=== PATIENT | male | born 1970 | race American Indian/Alaskan Native ===

== ENCOUNTER 2017-04-21 15:15 | Emergency (ER) | payer SELFPAY ==
[2017-04-21 15:45] VITALS: BP 120/81
--- NOTE | 2017-04-21 15:49 | Emergency Department Report ---
Entered by ROSS DILLON, acting as scribe for DAVIAN SHEPARD NP. Chief Complaint: Extremity Injury, Lower Stated Complaint: NUMBNESS IN LEG/CHEST PAINS/SOB Time Seen by Provider: 04/21/17 15:39 - HPI History of Present Illness: 46 y/o male, PMHx of A-fib, gout, c/o squeezing chest pain. Associated nausea, left lower leg pain but denies weight loss and changes in appetite. PT c/o Left leg pain and redness x 1 week - ROS Review of Systems: +chest pain +left lower leg pain, redness and swelling +nausea - Exam Vital Signs: Vital Signs 04/21/17 15:36 Temperature 98.6 F Pulse Rate 80 Respiratory 19 Rate Blood Pressure 120/81 O2 Sat by Pulse 98 Oximetry Physical Exam: The patient is a well-developed, well-nourished, in no apparent distress. Patient is alert and oriented x3. Extremity: erythema to LLE, + edema to ble MSE screening note: Focused history and physical exam performed. Due to findings the following was ordered: ekg, labs, xr ED Disposition for MSE Condition: Stable This documentation as recorded by the scribe,ROSS DILLON,accurately reflects the service I personally performed and the decisions made by ,DAVIAN SHEPARD, FUSING LINE INSPECTOR.
[2017-04-21 16:13] LABS: Basophils % (Auto) 1.2 % (0.0-1.8); Eosinophils % (Auto) 1.6 % (0.0-4.3); Hemoglobin 15.1 gm/dl (11.8-15.2); Mean Corpuscular HGB Conc 34 % (32-34); Mean Corpuscular Hemoglobin 31 pg (28-32); Mean Corpuscular Volume 93 fl (84-94); Platelet Count 289 K/mm3 (140-440); Red Blood Count 4.82 M/mm3 (3.65-5.03); Red Cell Distribution Width 15.7 % (13.2-15.2)
[2017-04-21 16:39] LABS: Alanine Aminotransferase 68 units/L (7-56); Albumin 4.5 g/dL (3.9-5); Albumin/Globulin Ratio 1.4 %; Alkaline Phosphatase 84 units/L (35-129); Anion Gap 23 mmol/L; BUN/Creatinine Ratio 11.42; Blood Urea Nitrogen 8 mg/dL (9-20); Calcium 9.6 mg/dL (8.4-10.2); Carbon Dioxide 25 mmol/L (22-30); Chloride 91.7 mmol/L (98-107); Glucose 109 mg/dL (75-100); Potassium 3.2 mmol/L (3.6-5.0); Sodium 136 mmol/L (137-145); Total Protein 7.8 g/dL (6.3-8.2)
--- NOTE | 2017-04-22 07:27 | XRay Report ---
CHEST 2 VIEWS INDICATION: Chest pain. COMPARISON: None similar. FINDINGS: PA and lateral chest radiographs demonstrate normal cardiomediastinal silhouette and clear lungs, given the inspiration. Right hemidiaphragm slightly elevated. Slight mid thoracic spine degenerative spurring. CONCLUSION: No definite acute chest process, as described. Thank you for the opportunity to participate in this patient's care.
== END 2017-04-21 20:00 | disposition left against medical advice (07) ==
LOC: ED 15:15
DX: M79.605 Pain in left leg (principal); R11.0 Nausea; R07.9 Chest pain, unspecified; I48.91 Unspecified atrial fibrillation; Z53.21 Procedure and treatment not carried out due to patient leaving prior to being seen by health care provider
CPT/HCPCS: 36415; 71020; 80053; 82550; 83880; 84484; 85025; 93005; 93010

== ENCOUNTER 2017-06-08 04:47 | Emergency (ER) | payer SELFPAY ==
--- NOTE | 2017-06-08 06:34 | Cat Scan Report ---
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 No intravenous contrast was administered. PRIORS: None. FINDINGS: There is no evidence of intracranial hemorrhage. There is no edema, mass effect or midline shift. There are no abnormal extra-axial fluid collections. The ventricles are appropriate for brain volume. There is no skull fracture seen. The visualized aspects of the sinuses are clear. IMPRESSION: There is no acute intracranial abnormality identified.
[2017-06-08 07:07] LABS: Basophils % (Auto) 0.5 % (0.0-1.8); Eosinophils % (Auto) 2.2 % (0.0-4.3); Hematocrit 44.8 % (35.5-45.6); Hemoglobin 15.2 gm/dl (11.8-15.2); Mean Corpuscular HGB Conc 34 % (32-34); Mean Corpuscular Hemoglobin 32 pg (28-32); Mean Corpuscular Volume 93 fl (84-94); Platelet Count 304 K/mm3 (140-440); Red Blood Count 4.81 M/mm3 (3.65-5.03); Red Cell Distribution Width 14.4 % (13.2-15.2); White Blood Count 6.6 K/mm3 (4.5-11.0)
[2017-06-08 07:12] LABS: Anion Gap 25 mmol/L; BUN/Creatinine Ratio 11.25; Blood Urea Nitrogen 9 mg/dL (9-20); Calcium 8.8 mg/dL (8.4-10.2); Carbon Dioxide 20 mmol/L (22-30); Chloride 99.7 mmol/L (98-107); Glucose 116 mg/dL (75-100); Potassium 3.2 mmol/L (3.6-5.0); Sodium 141 mmol/L (137-145)
[2017-06-08 07:15] LABS: INR 0.98 (0.87-1.13)
[2017-06-08 07:16] LABS: Partial Thromboplastin Time 27.6 Sec. (24.2-36.6)
[2017-06-08] MEDS ORDERED: ZOFRAN IV ONE (08:06)
[2017-06-08] MEDS ORDERED: DILAUDID IV ONE (08:06)
[2017-06-08] MEDS ORDERED: K-DUR PO ONE (08:48)
--- NOTE | 2017-06-08 08:49 | Emergency Department Report ---
ED Chest Pain HPI - General Chief Complaint: Chest Pain Stated Complaint: CHEST PAIN Time Seen by Provider: 06/08/17 08:06 Source: patient Mode of arrival: Ambulatory Limitations: No Limitations - History of Present Illness MD Complaint: chest pain -: Gradual Onset: during rest Pain Location: left chest, right chest Pain Radiation: back Severity: mild Severity scale (0 -10): 4 Quality: tightness Consistency: constant Improves With: nothing Worsens With: nothing Context: recent illness re: nausea Other Symptoms: cough Treatments Prior to Arrival: none Aspirin use within the Past 7 Days: (0) No - Related Data On Oral Contraceptives: No Previous Rx's Medication Instructions Recorded Last Taken Type methOCARBAMOL [Robaxin TAB] 500 mg PO Q6H PRN #20 tablet 06/08/17 Unknown Rx Allergies Allergy/AdvReac Type Severity Reaction Status Date / Time Penicillins Allergy Unknown Verified 04/21/17 15:46 Heart Score - HEART Score History: Slightly suspicious EKG: Non-specific Age: 45-65 Risk factors: 1-2 risk factors Troponin: < normal limit HEART Score: 3 - Critical Actions Critical Actions: 0-3 pts:0.9-1.7%risk of adverse cardiac event.Candidate for discharge ED Review of Systems ROS: Stated complaint: CHEST PAIN Other details as noted in HPI Comment: All other systems reviewed and negative Constitutional: weakness Cardiovascular: chest pain ED Past Medical Hx - Past Medical History Previous Medical History?: Yes Hx Hypertension: Yes Additional medical history: ATRIAL FIB. HIGH CHOLESTEROL. GOUT. OBESITY - Surgical History Hx Cholecystectomy: Yes Additional Surgical History: LEFT LOWER LEG SURGERIES. RIGHT LEG SURGERY - Family History Family history: hypertension - Social History Smoking Status: Current Every Day Smoker - Medications Home Medications: Home Medications Medication Instructions Recorded Confirmed Last Taken Type methOCARBAMOL [Robaxin TAB] 500 mg PO Q6H PRN #20 tablet 06/08/17 Unknown Rx ED Physical Exam - General Limitations: No Limitations General appearance: alert - Head Head exam: Present: atraumatic - Eye Eye exam: Present: normal appearance - ENT ENT exam: Present: normal exam - Neck Neck exam: Present: normal inspection - Respiratory Respiratory exam: Present: normal lung sounds bilaterally - Cardiovascular Cardiovascular Exam: Present: regular rate, normal rhythm - GI/Abdominal GI/Abdominal exam: Present: soft - Back Exam Back exam: Present: normal inspection - Neurological Exam Neurological exam: Present: alert, oriented X3 - Skin Skin exam: Present: warm ED Course Vital Signs 06/08/17 06/08/17 06/08/17 05:47 06:44 06:46 Temperature 98.0 F Pulse Rate 103 H 81 90 Respiratory 18 12 15 Rate Blood Pressure 139/101 Blood Pressure [Left] O2 Sat by Pulse 96 100 99 Oximetry 06/08/17 06/08/17 06/08/17 06:48 06:50 06:52 Temperature Pulse Rate 84 89 86 Respiratory 17 17 16 Rate Blood Pressure 126/87 126/87 126/87 Blood Pressure [Left] O2 Sat by Pulse 99 94 99 Oximetry 06/08/17 06/08/17 06/08/17 06:54 07:25 07:26 Temperature 97.9 F Pulse Rate 88 85 Respiratory 24 17 Rate Blood Pressure 126/87 Blood Pressure 126/90 [Left] O2 Sat by Pulse 94 98 100 Oximetry 06/08/17 06/08/17 06/08/17 07:58 08:00 08:02 Temperature Pulse Rate 88 75 82 Respiratory 17 20 23 Rate Blood Pressure 122/91 139/77 139/77 Blood Pressure [Left] O2 Sat by Pulse 98 96 94 Oximetry 06/08/17 06/08/17 06/08/17 08:04 08:06 08:08 Temperature Pulse Rate 82 84 78 Respiratory 21 21 19 Rate Blood Pressure 139/77 139/77 139/77 Blood Pressure [Left] O2 Sat by Pulse 95 95 97 Oximetry 06/08/17 06/08/17 06/08/17 08:10 08:12 08:14 Temperature Pulse Rate 81 81 90 Respiratory 18 19 16 Rate Blood Pressure 139/77 139/77 139/77 Blood Pressure [Left] O2 Sat by Pulse 94 95 98 Oximetry 06/08/17 06/08/17 06/08/17 08:15 08:16 08:18 Temperature Pulse Rate 86 82 88 Respiratory 20 20 20 Rate Blood Pressure 131/90 131/90 131/90 Blood Pressure [Left] O2 Sat by Pulse 97 92 89 Oximetry 06/08/17 06/08/17 06/08/17 08:20 08:22 08:24 Temperature Pulse Rate 78 80 80 Respiratory 17 18 17 Rate Blood Pressure 131/90 131/90 131/90 Blood Pressure [Left] O2 Sat by Pulse 96 94 91 Oximetry 06/08/17 06/08/17 06/08/17 08:26 08:28 08:30 Temperature Pulse Rate 76 86 78 Respiratory 17 18 17 Rate Blood Pressure 131/90 131/90 121/85 Blood Pressure [Left] O2 Sat by Pulse 92 89 92 Oximetry 06/08/17 06/08/17 06/08/17 08:32 08:34 08:36 Temperature Pulse Rate 80 76 75 Respiratory 16 16 17 Rate Blood Pressure 121/85 121/85 121/85 Blood Pressure [Left] O2 Sat by Pulse 89 92 91 Oximetry 06/08/17 06/08/17 06/08/17 08:38 08:40 08:42 Temperature Pulse Rate 76 80 79 Respiratory 16 15 17 Rate Blood Pressure 121/85 121/85 121/85 Blood Pressure [Left] O2 Sat by Pulse 92 92 89 Oximetry 06/08/17 06/08/17 06/08/17 08:44 08:46 08:48 Temperature Pulse Rate 86 86 76 Respiratory 20 18 15 Rate Blood Pressure 121/85 116/62 116/62 Blood Pressure [Left] O2 Sat by Pulse 93 94 94 Oximetry 06/08/17 06/08/17 06/08/17 08:50 08:52 08:54 Temperature Pulse Rate 81 84 83 Respiratory 15 17 18 Rate Blood Pressure 116/62 116/62 116/62 Blood Pressure [Left] O2 Sat by Pulse 97 98 97 Oximetry 06/08/17 06/08/17 06/08/17 08:56 08:58 09:00 Temperature Pulse Rate 87 78 86 Respiratory 15 13 16 Rate Blood Pressure 116/62 116/62 124/89 Blood Pressure [Left] O2 Sat by Pulse 98 99 98 Oximetry 06/08/17 06/08/17 06/08/17 09:02 09:04 09:06 Temperature Pulse Rate 76 75 78 Respiratory 15 19 17 Rate Blood Pressure 124/89 124/89 124/89 Blood Pressure [Left] O2 Sat by Pulse 99 94 96 Oximetry 06/08/17 06/08/17 06/08/17 09:08 09:10 09:12 Temperature Pulse Rate 78 80 78 Respiratory 17 18 17 Rate Blood Pressure 124/89 124/89 124/89 Blood Pressure [Left] O2 Sat by Pulse 97 93 95 Oximetry 06/08/17 06/08/17 06/08/17 09:14 09:15 09:16 Temperature Pulse Rate 80 74 81 Respiratory 18 16 19 Rate Blood Pressure 124/89 117/72 117/72 Blood Pressure [Left] O2 Sat by Pulse 94 100 95 Oximetry 06/08/17 06/08/17 06/08/17 09:18 09:20 09:22 Temperature Pulse Rate 76 75 74 Respiratory 17 17 17 Rate Blood Pressure 117/72 117/72 117/72 Blood Pressure [Left] O2 Sat by Pulse 95 95 96 Oximetry 06/08/17 06/08/17 06/08/17 09:24 09:26 09:28 Temperature Pulse Rate 88 84 81 Respiratory 17 20 16 Rate Blood Pressure 117/72 117/72 117/72 Blood Pressure [Left] O2 Sat by Pulse 95 98 99 Oximetry 06/08/17 06/08/17 09:30 09:31 Temperature Pulse Rate 80 80 Respiratory 20 14 Rate Blood Pressure 117/72 117/72 Blood Pressure [Left] O2 Sat by Pulse 99 100 Oximetry ED Medical Decision Making - Lab Data Result diagrams: 06/08/17 05:58 06/08/17 05:58 Critical care attestation.: If time is entered above; I have spent that time in minutes in the direct care of this critically ill patient, excluding procedure time. ED Disposition Clinical Impression: Chest pain Disposition: DC-01 TO HOME OR SELFCARE Is pt being admited?: No Does the pt Need Aspirin: No Condition: Stable Instructions: Chest Pain (ED) Prescriptions: methOCARBAMOL [Robaxin TAB] 500 mg PO Q6H PRN #20 tablet PRN Reason: Pain Referrals: GLORIA COLBY MD [Other] - 3-5 Days
[2017-06-08 09:46] VITALS: BP 117/72
== END 2017-06-08 09:50 | disposition home or self-care (01) ==
LOC: ED 04:47
DX: R07.9 Chest pain, unspecified (principal); I10 Essential (primary) hypertension; E78.00 Pure hypercholesterolemia, unspecified; M10.9 Gout, unspecified; E66.9 Obesity, unspecified; F17.200 Nicotine dependence, unspecified, uncomplicated; Z88.0 Allergy status to penicillin
CPT/HCPCS: 36415; 70450; 80048; 84484; 85025; 85610; 85730; 93005; 93010; 96374; 96375; 99285; J1170; J2405

== ENCOUNTER 2017-09-25 17:12 | Inpatient (IN) | payer OTHER ==
--- NOTE | 2017-09-25 18:08 | Emergency Department Report ---
ED Neuro Deficit HPI - General Chief Complaint: Neuro Symptoms/Deficit Stated Complaint: NEURO SYMPTOMS Time Seen by Provider: 09/25/17 18:01 Source: patient Mode of arrival: Wheelchair Limitations: Altered Mental Status, Other (the patient has alcohol intoxication on board) - History of Present Illness Initial Comments: This is a 47-year-old male. The patient is previously unknown to this provider. The patient presents to the ER today with complaint of left-sided weakness, headache and chest pain. The left-sided weakness is constant. The patient does not know what time it started. The patient says his chest pain is central. Does not have exacerbating or relieving factors. He cannot describe the quality of nature of his symptoms. He does not know if he fell or hit his head, although he does not think so. As per verbal report from his nephew, Mr. Kamar Tello; [phone], he came home and found the patient and home, with complaint of left-sided zackary-Lelia's. He indicates "my uncle drinks all day all the time." The patient cannot tell me his last known well time. The patient's nephew, Kamar, cannot tell me the patient's last known well time. The patient also complains of headache. He indicates the headache is "all over." He cannot describe the nature of the headache, nor can he describe exacerbating or relieving factors, secondary to alcohol intoxication. -: unknown Location: left arm, left leg Presenting Symptoms: Present: Weak/Paralyzed One Side Place: home Severity: moderate Quality: weak, other (per hpi) Improves With: other (per hpi) Worsens With: other (per hpi) Context: other (unknown) Associated Symptoms: confusion, chest pain, headaches - Related Data Home Medications: Previous Rx's Medication Instructions Recorded Last Taken Type methOCARBAMOL [Robaxin TAB] 500 mg PO Q6H PRN #20 tablet 06/08/17 Unknown Rx Allergies/Adverse Reactions: Allergies Allergy/AdvReac Type Severity Reaction Status Date / Time Penicillins Allergy Unknown Verified 04/21/17 15:46 ED Review of Systems ROS: Stated complaint: NEURO SYMPTOMS Other details as noted in HPI Comment: Unobtainable due to pts medical conditions Cardiovascular: chest pain Neurological: weakness ED Past Medical Hx - Past Medical History Hx Hypertension: Yes Additional medical history: ATRIAL FIB. HIGH CHOLESTEROL. GOUT. OBESITY - Surgical History Hx Cholecystectomy: Yes Additional Surgical History: LEFT LOWER LEG SURGERIES. RIGHT LEG SURGERY - Social History Smoking Status: Current Every Day Smoker Substance Use Type: Alcohol - Medications Home Medications: Home Medications Medication Instructions Recorded Confirmed Last Taken Type methOCARBAMOL [Robaxin TAB] 500 mg PO Q6H PRN #20 tablet 06/08/17 Unknown Rx ED Neuro Physical Exam - General Limitations: No Limitations General appearance: alert, in no apparent distress Suspected Stroke: Yes - Head Head exam: Present: atraumatic, normocephalic - Eye Eye exam: Present: normal appearance, EOMI. Absent: nystagmus - ENT ENT exam: Present: normal exam, normal orophraynx, mucous membranes moist, normal external ear exam - Neck Neck exam: Present: normal inspection, full ROM - Respiratory Respiratory exam: Present: normal lung sounds bilaterally. Absent: respiratory distress - Cardiovascular Cardiovascular Exam: Present: normal rhythm, tachycardia, normal heart sounds. Absent: bradycardia, systolic murmur, diastolic murmur, rubs, gallop - GI/Abdominal GI/Abdominal exam: Present: soft, normal bowel sounds. Absent: distended, tenderness, guarding, rebound, rigid, pulsatile mass - Rectal Rectal exam: Present: deferred - Extremities Exam Extremities exam: Present: normal inspection, other (5-5 strength right upper, right lower extremity. Patient has 0 out of 5 strength left upper, left lower extremity. Patient endorses no sensation left upper, left lower extremity). Absent: full ROM - Back Exam Back exam: Present: normal inspection. Absent: paraspinal tenderness, vertebral tenderness - Neurological Exam Neurological exam: Present: alert, motor sensory deficit - NIHSS Assessment Interval: Baseline 1a. Level of Consciousness: alert 1b. LOC Questions: answers 1 question correctly 1c. LOC Commands: performs tasks correctly 2. Best Gaze: normal 3. Visual: no visual loss 4. Facial Palsy: normal symmetrical movement 5b. Motor Arm Right: no drift 5a. Motor Arm Left: no movement 6a. Motor Leg Left: no movement 6b. Motor Leg Right: no drift 7. Limb Ataxia: absent 8. Sensory: severe/total sensory loss 9. Best Language: no aphasia 10. Dysarthria: normal 11. Extinction/Inattention: visual/tactile inattention Total Score: 12 Stroke Severity: Moderate Stroke - Psychiatric Psychiatric exam: Present: normal affect, normal mood. Absent: homicidal ideation, suicidal ideation - Skin Skin exam: Present: warm, dry, intact, normal color. Absent: rash ED Course Vital Signs 09/25/17 09/25/17 09/25/17 17:31 18:16 19:20 Temperature 98.7 F Pulse Rate 111 H 101 H Respiratory 18 18 21 Rate Blood Pressure 117/88 O2 Sat by Pulse 93 91 96 Oximetry 09/25/17 09/25/17 09/25/17 19:25 19:27 19:29 Temperature Pulse Rate 99 H 99 H 98 H Respiratory 20 22 19 Rate Blood Pressure 117/81 117/81 117/81 O2 Sat by Pulse 96 98 96 Oximetry 09/25/17 09/25/17 09/25/17 19:31 19:32 19:33 Temperature Pulse Rate Respiratory Rate Blood Pressure 117/81 117/81 117/81 O2 Sat by Pulse 98 98 97 Oximetry 09/25/17 09/25/17 09/25/17 20:05 20:07 20:09 Temperature Pulse Rate 94 H 102 H 100 H Respiratory 18 21 19 Rate Blood Pressure 131/87 131/87 131/87 O2 Sat by Pulse 89 Oximetry 09/25/17 09/25/17 09/25/17 20:11 20:12 20:13 Temperature Pulse Rate 102 H 102 H 101 H Respiratory 19 17 18 Rate Blood Pressure 131/87 131/87 O2 Sat by Pulse 88 87 88 Oximetry 09/25/17 09/25/17 09/25/17 20:15 20:17 20:18 Temperature Pulse Rate 104 H 108 H 101 H Respiratory 19 19 19 Rate Blood Pressure 131/87 131/87 131/87 O2 Sat by Pulse 81 L 89 95 Oximetry 09/25/17 09/25/17 09/25/17 20:21 20:22 20:24 Temperature Pulse Rate 106 H 99 H 96 H Respiratory 16 18 19 Rate Blood Pressure 131/87 131/87 131/87 O2 Sat by Pulse 94 97 95 Oximetry 09/25/17 09/25/17 09/25/17 20:26 20:28 20:30 Temperature Pulse Rate 98 H 102 H 99 H Respiratory 18 18 17 Rate Blood Pressure 131/87 131/87 114/75 O2 Sat by Pulse 98 98 97 Oximetry 09/25/17 09/25/17 09/25/17 20:32 20:34 20:36 Temperature Pulse Rate 100 H 100 H 106 H Respiratory 18 18 17 Rate Blood Pressure 114/75 114/75 114/75 O2 Sat by Pulse 97 97 96 Oximetry 09/25/17 09/25/17 09/25/17 20:38 20:40 20:42 Temperature Pulse Rate 102 H 101 H 102 H Respiratory 17 19 18 Rate Blood Pressure 114/75 114/75 114/75 O2 Sat by Pulse 97 99 96 Oximetry 09/25/17 09/25/17 09/25/17 20:44 20:46 20:48 Temperature Pulse Rate 106 H 106 H 106 H Respiratory 17 19 13 Rate Blood Pressure 114/75 114/75 114/75 O2 Sat by Pulse 95 94 97 Oximetry 09/25/17 09/25/17 09/25/17 20:49 20:52 20:54 Temperature Pulse Rate 107 H 100 H 101 H Respiratory 14 19 17 Rate Blood Pressure 114/75 118/88 118/88 O2 Sat by Pulse 100 93 91 Oximetry 09/25/17 09/25/17 09/25/17 20:56 20:58 21:00 Temperature Pulse Rate 100 H 101 H 99 H Respiratory 19 19 16 Rate Blood Pressure 118/88 114/75 121/83 O2 Sat by Pulse 90 82 L 89 Oximetry 09/25/17 09/25/17 09/25/17 21:02 21:04 21:06 Temperature Pulse Rate 101 H 98 H 100 H Respiratory 17 16 18 Rate Blood Pressure 121/83 121/83 121/83 O2 Sat by Pulse 89 92 84 Oximetry 09/25/17 09/25/17 09/25/17 21:08 21:10 21:12 Temperature Pulse Rate 101 H 103 H 108 H Respiratory 17 19 19 Rate Blood Pressure 121/83 121/83 121/83 O2 Sat by Pulse 90 85 84 Oximetry 09/25/17 09/25/17 09/25/17 21:14 21:16 21:18 Temperature Pulse Rate 105 H 106 H 106 H Respiratory 19 18 18 Rate Blood Pressure 121/83 121/83 121/83 O2 Sat by Pulse 86 82 L 86 Oximetry 09/25/17 09/25/17 09/25/17 21:20 21:22 21:24 Temperature Pulse Rate 109 H 105 H 105 H Respiratory 18 19 17 Rate Blood Pressure 128/69 128/69 128/69 O2 Sat by Pulse 84 86 81 L Oximetry 09/25/17 09/25/17 09/25/17 21:26 21:28 21:30 Temperature Pulse Rate 101 H 103 H 104 H Respiratory 22 16 15 Rate Blood Pressure 128/69 128/69 128/69 O2 Sat by Pulse 93 94 96 Oximetry 09/25/17 09/25/17 09/25/17 21:32 21:34 21:36 Temperature Pulse Rate 101 H 105 H 103 H Respiratory 16 15 13 Rate Blood Pressure 128/69 128/69 128/69 O2 Sat by Pulse 97 96 94 Oximetry 09/25/17 09/25/17 09/25/17 21:38 21:40 21:42 Temperature Pulse Rate 102 H 103 H 103 H Respiratory 20 24 23 Rate Blood Pressure 128/69 121/67 121/67 O2 Sat by Pulse 93 95 97 Oximetry 09/25/17 09/25/17 09/25/17 21:44 21:46 21:48 Temperature Pulse Rate 103 H 103 H 104 H Respiratory 23 16 17 Rate Blood Pressure 121/67 121/67 121/67 O2 Sat by Pulse 93 97 94 Oximetry 09/25/17 09/25/17 09/25/17 21:50 21:52 21:54 Temperature Pulse Rate 103 H 105 H 106 H Respiratory 17 17 17 Rate Blood Pressure 121/67 121/67 121/67 O2 Sat by Pulse 95 95 95 Oximetry 09/25/17 09/25/17 09/25/17 21:56 21:58 22:00 Temperature Pulse Rate 104 H 106 H 100 H Respiratory 16 18 15 Rate Blood Pressure 121/67 121/67 115/69 O2 Sat by Pulse 95 95 96 Oximetry 09/25/17 09/25/17 09/25/17 22:02 22:04 22:06 Temperature Pulse Rate 102 H 102 H 103 H Respiratory 16 18 18 Rate Blood Pressure 115/69 115/69 115/69 O2 Sat by Pulse 95 94 95 Oximetry 09/25/17 09/25/17 09/25/17 22:08 22:10 22:12 Temperature Pulse Rate 102 H 104 H 103 H Respiratory 19 18 18 Rate Blood Pressure 115/69 115/69 115/69 O2 Sat by Pulse 94 94 94 Oximetry 09/25/17 09/25/17 09/25/17 22:14 22:16 22:18 Temperature Pulse Rate 103 H 102 H 104 H Respiratory 18 18 18 Rate Blood Pressure 115/69 115/69 115/69 O2 Sat by Pulse 92 93 92 Oximetry 09/25/17 09/25/17 09/25/17 22:20 22:21 22:22 Temperature Pulse Rate 102 H 107 H 103 H Respiratory 18 19 19 Rate Blood Pressure 115/69 118/71 118/71 O2 Sat by Pulse 94 93 94 Oximetry 09/25/17 09/25/17 09/25/17 22:24 22:26 22:28 Temperature Pulse Rate 106 H 102 H 103 H Respiratory 18 18 19 Rate Blood Pressure 118/71 118/71 118/71 O2 Sat by Pulse 92 94 94 Oximetry 09/25/17 09/25/17 09/25/17 22:30 22:32 22:40 Temperature Pulse Rate 99 H 101 H 103 H Respiratory 15 16 18 Rate Blood Pressure 115/69 115/69 114/72 O2 Sat by Pulse 96 95 94 Oximetry 09/25/17 09/25/17 09/25/17 22:42 22:44 22:46 Temperature Pulse Rate 102 H 101 H 96 H Respiratory 17 15 17 Rate Blood Pressure 114/72 114/72 114/72 O2 Sat by Pulse 97 95 95 Oximetry 09/25/17 09/25/17 09/25/17 22:48 22:50 22:52 Temperature Pulse Rate 99 H 98 H 98 H Respiratory 16 16 15 Rate Blood Pressure 114/72 114/72 114/72 O2 Sat by Pulse 95 95 97 Oximetry 09/25/17 09/25/17 09/25/17 22:54 22:56 22:58 Temperature Pulse Rate 99 H 102 H 107 H Respiratory 17 18 22 Rate Blood Pressure 114/72 114/72 114/72 O2 Sat by Pulse 95 95 93 Oximetry 09/25/17 09/25/17 09/25/17 23:00 23:02 23:04 Temperature Pulse Rate 99 H 99 H 101 H Respiratory 16 16 17 Rate Blood Pressure 109/70 109/70 109/70 O2 Sat by Pulse 96 96 95 Oximetry 09/25/17 09/25/17 09/25/17 23:06 23:08 23:10 Temperature Pulse Rate 100 H 106 H 97 H Respiratory 16 18 17 Rate Blood Pressure 109/70 109/70 109/70 O2 Sat by Pulse 96 95 96 Oximetry 09/25/17 09/25/17 09/25/17 23:12 23:14 23:16 Temperature Pulse Rate 98 H 101 H 100 H Respiratory 16 16 18 Rate Blood Pressure 109/70 109/70 109/70 O2 Sat by Pulse 96 96 96 Oximetry 09/25/17 09/25/17 09/25/17 23:18 23:20 23:22 Temperature Pulse Rate 106 H 100 H 100 H Respiratory 20 18 14 Rate Blood Pressure 109/70 117/76 117/76 O2 Sat by Pulse 95 96 97 Oximetry 09/25/17 09/25/17 09/25/17 23:24 23:26 23:28 Temperature Pulse Rate 104 H 106 H 102 H Respiratory 16 16 17 Rate Blood Pressure 117/76 117/76 117/76 O2 Sat by Pulse 94 92 97 Oximetry 09/25/17 09/25/17 09/25/17 23:30 23:32 23:34 Temperature Pulse Rate 102 H 99 H 100 H Respiratory 15 15 17 Rate Blood Pressure 117/76 117/76 117/76 O2 Sat by Pulse 97 97 95 Oximetry 09/25/17 09/25/17 09/25/17 23:36 23:38 23:40 Temperature Pulse Rate 100 H 102 H 96 H Respiratory 17 16 16 Rate Blood Pressure 117/76 117/76 107/71 O2 Sat by Pulse 95 95 97 Oximetry 09/25/17 09/25/17 09/25/17 23:42 23:44 23:46 Temperature Pulse Rate 97 H 101 H 101 H Respiratory 16 17 18 Rate Blood Pressure 107/71 107/71 107/71 O2 Sat by Pulse 97 96 95 Oximetry 09/25/17 09/25/17 09/25/17 23:48 23:50 23:52 Temperature Pulse Rate 98 H 97 H 98 H Respiratory 17 16 16 Rate Blood Pressure 107/71 107/71 107/71 O2 Sat by Pulse 97 96 96 Oximetry 09/25/17 09/25/17 09/25/17 23:54 23:56 23:58 Temperature Pulse Rate 98 H 94 H 96 H Respiratory 17 16 16 Rate Blood Pressure 107/71 107/71 107/71 O2 Sat by Pulse 96 96 96 Oximetry 09/26/17 09/26/17 09/26/17 00:00 00:01 00:02 Temperature Pulse Rate 94 H 98 H 96 H Respiratory 14 14 17 Rate Blood Pressure 112/78 112/78 112/78 O2 Sat by Pulse 97 96 95 Oximetry 09/26/17 09/26/17 09/26/17 00:04 00:06 00:08 Temperature Pulse Rate 97 H 96 H 95 H Respiratory 17 18 15 Rate Blood Pressure 112/78 112/78 112/78 O2 Sat by Pulse 95 96 97 Oximetry 09/26/17 09/26/17 09/26/17 00:10 00:12 00:14 Temperature Pulse Rate 94 H 96 H 98 H Respiratory 16 17 17 Rate Blood Pressure 112/78 112/78 112/78 O2 Sat by Pulse 96 96 97 Oximetry 09/26/17 00:16 Temperature Pulse Rate 92 H Respiratory 13 Rate Blood Pressure 112/78 O2 Sat by Pulse 97 Oximetry - Reevaluation(s) Reevaluation #1: 09/25/17 18:16 Differential diagnosis: Stroke, radiculopathy, alcohol intoxication, acute coronary syndrome, aortic dissection Assessment and plan: 47-year-old male with a complaint of chest pain, headache and left-sided hemiparesis. We do not have an exact timeline or onset of symptoms. The patient is drunk, and cannot tell me exactly when his symptoms started. His nephew, Mr. Kamar Tello, also cannot say when his symptoms started. Mr. Tello gave verbal consent over a telephone conversation "to do any test that is necessary." CT scan of the brain is pending. CT scan of the neck and head are also pending; doubt aortic dissection, patient is not severely hypertensive and has equal pulses in the bilateral upper and lower extremities. In addition, a CT angiogram of the brain and neck should involve the aortic arch, which can be visualized in case the patient is having a dissection. We will also discuss with stroke neurology consulting group analyst. Reevaluation #2: 09/25/17 18:42 Case is discussed with consulting stroke neurologist, Dr. Jaxson Kay. Given that the patient cannot give an exact onset of symptoms, his family cannot provide any exact onset of symptoms, patient does not know if he's had any surgeries recently, family and patient cannot provide a full list of medications and/or recent surgeries, the patient is not a thrombolysis candidate. He does agree with plan for CT angiogram of the head and neck. Reevaluation #3: 09/25/17 20:18 CT scan/angiogram is still pending. Laboratory studies demonstrated an elevated blood alcohol level. Reevaluation #4: 09/25/17 22:04 Patient in no distress. Multiple calls made to [facility] radiology group, DODIE , we have requested expedited reads on CT angiograms. Thus far, no re-has been rendered. Currently waiting interpretation. Reevaluation #5: 09/25/17 23:52 Still no interpretation on the CT scan. There is no in-house radiologist. There is no on-call radiologist. CT scans have been sensitive to [facility]. We'll discuss - Consultations Consultation #1: 09/26/17 00:[address] scan images were transmitted to [facility], and reviewed by the consulting stroke neurologist, Dr. Ghanshyam Llanes. He has personally reviewed the patient's images, and indicates that based on the patient's images, patient not a candidate for endovascular intervention or therapy. Case is therefore presented to the Hospital physician, Dr. Mendoza, who accepts the patient to the medical service. Consultation #2: 09/26/17 00:58 CT angiogram of the neck negative for dissection and large vessel occlusion. - Lab Data Result diagrams: 09/25/17 17:47 09/25/17 17:47 Lab Results 09/25/17 09/25/17 09/25/17 Range/Units 17:47 17:47 17:47 WBC 3.7 L (4.5-11.0) K/mm3 RBC 5.45 H (3.65-5.03) M/mm3 Hgb 17.0 H (11.8-15.2) gm/dl Hct 51.1 H (35.5-45.6) % MCV 94 (84-94) fl MCH 31 (28-32) pg MCHC 33 (32-34) % RDW 15.3 H (13.2-15.2) % Plt Count 258 (140-440) K/mm3 Lymph % (Auto) 44.6 H (13.4-35.0) % [place] % (Auto) 11.0 H (0.0-7.3) % Eos % (Auto) 2.7 (0.0-4.3) % Baso % (Auto) 1.0 (0.0-1.8) % Lymph # 1.7 (1.2-5.4) K/mm3 [place] # 0.4 (0.0-0.8) K/mm3 Eos # 0.1 (0.0-0.4) K/mm3 Baso # 0.0 (0.0-0.1) K/mm3 Seg Neutrophils % 40.7 (40.0-70.0) % Seg Neutrophils # 1.5 L (1.8-7.7) K/mm3 PT 13.1 (12.2-14.9) Sec. INR 0.94 (0.87-1.13) APTT 30.4 (24.2-36.6) Sec. Thrombin Time (15.1-19.6) Sec. Sodium 142 (137-145) mmol/L Potassium 3.9 (3.6-5.0) mmol/L Chloride 97.5 L (98-107) mmol/L Carbon Dioxide 25 (22-30) mmol/L Anion Gap 23 mmol/L BUN 10 (9-20) mg/dL Creatinine 0.8 (0.8-1.5) mg/dL Estimated GFR > 60 ml/min BUN/Creatinine Ratio 13 % Glucose 118 H (75-100) mg/dL POC Glucose (70-105) Calcium 9.4 (8.4-10.2) mg/dL Troponin T < 0.010 (0.00-0.029) ng/mL Urine Opiates Screen Urine Methadone Screen Ur Barbiturates Screen Ur Phencyclidine Scrn Ur Amphetamines Screen U Benzodiazepines Scrn Urine Cocaine Screen U Marijuana (THC) Screen Drugs of Abuse Note Plasma/Serum Alcohol (0-0.07) gm% 09/25/17 09/25/17 09/25/17 Range/Units 17:47 17:47 17:47 WBC (4.5-11.0) K/mm3 RBC (3.65-5.03) M/mm3 Hgb (11.8-15.2) gm/dl Hct (35.5-45.6) % MCV (84-94) fl MCH (28-32) pg MCHC (32-34) % RDW (13.2-15.2) % Plt Count (140-440) K/mm3 Lymph % (Auto) (13.4-35.0) % [place] % (Auto) (0.0-7.3) % Eos % (Auto) (0.0-4.3) % Baso % (Auto) (0.0-1.8) % Lymph # (1.2-5.4) K/mm3 [place] # (0.0-0.8) K/mm3 Eos # (0.0-0.4) K/mm3 Baso # (0.0-0.1) K/mm3 Seg Neutrophils % (40.0-70.0) % Seg Neutrophils # (1.8-7.7) K/mm3 PT (12.2-14.9) Sec. INR (0.87-1.13) APTT (24.2-36.6) Sec. Thrombin Time 28.1 H (15.1-19.6) Sec. Sodium (137-145) mmol/L Potassium (3.6-5.0) mmol/L Chloride (98-107) mmol/L Carbon Dioxide (22-30) mmol/L Anion Gap mmol/L BUN (9-20) mg/dL Creatinine (0.8-1.5) mg/dL Estimated GFR ml/min BUN/Creatinine Ratio % Glucose (75-100) mg/dL POC Glucose 132 H (70-105) Calcium (8.4-10.2) mg/dL Troponin T (0.00-0.029) ng/mL Urine Opiates Screen Urine Methadone Screen Ur Barbiturates Screen Ur Phencyclidine Scrn Ur Amphetamines Screen U Benzodiazepines Scrn Urine Cocaine Screen U Marijuana (THC) Screen Drugs of Abuse Note Plasma/Serum Alcohol 0.24 H (0-0.07) gm% 09/25/ Range/Units 19:00 WBC (4.5-11.0) K/mm3 RBC (3.65-5.03) M/mm3 Hgb (11.8-15.2) gm/dl Hct (35.5-45.6) % MCV (84-94) fl MCH (28-32) pg MCHC (32-34) % RDW (13.2-15.2) % Plt Count (140-440) K/mm3 Lymph % (Auto) (13.4-35.0) % [place] % (Auto) (0.0-7.3) % Eos % (Auto) (0.0-4.3) % Baso % (Auto) (0.0-1.8) % Lymph # (1.2-5.4) K/mm3 [place] # (0.0-0.8) K/mm3 Eos # (0.0-0.4) K/mm3 Baso # (0.0-0.1) K/mm3 Seg Neutrophils % (40.0-70.0) % Seg Neutrophils # (1.8-7.7) K/mm3 PT (12.2-14.9) Sec. INR (0.87-1.13) APTT (24.2-36.6) Sec. Thrombin Time (15.1-19.6) Sec. Sodium (137-145) mmol/L Potassium (3.6-5.0) mmol/L Chloride (98-107) mmol/L Carbon Dioxide (22-30) mmol/L Anion Gap mmol/L BUN (9-20) mg/dL Creatinine (0.8-1.5) mg/dL Estimated GFR ml/min BUN/Creatinine Ratio % Glucose (75-100) mg/dL POC Glucose (70-105) Calcium (8.4-10.2) mg/dL Troponin T (0.00-0.029) ng/mL Urine Opiates Screen Presumptive negative Urine Methadone Screen Presumptive negative Ur Barbiturates Screen Presumptive negative Ur Phencyclidine Scrn Presumptive negative Ur Amphetamines Screen Presumptive negative U Benzodiazepines Scrn Presumptive positive Urine Cocaine Screen Presumptive positive U Marijuana (THC) Screen Presumptive positive Drugs of Abuse Note Disclamer Plasma/Serum Alcohol (0-0.07) gm% - EKG Data -: EKG Interpreted by Me EKG shows normal: sinus rhythm When compared to previous EKG there are: previous EKG unavailable 09/25/17 18:18 Sinus tachycardia, 119 bpm, left axis deviation, left ventricular hypertrophy, left anterior fascicular block, abnormal EKG, not morphologically consistent with ST elevation myocardial infarction - Radiology Data Radiology results: report reviewed, image reviewed interpreted by me: X-ray of the chest demonstrates elevated bilateral hemidiaphragms. Nonspecific widening of the mediastinum. Noncontrast CT scan of the brain suggests subacute ischemia. - Core Measures Measure Exclusions: not indicated - Thrombolytic Inclusion/Exclusion Thrombolytic Exclusion Criteria: Onset of Symptoms Unknown Critical care attestation.: If time is entered above; I have spent that time in minutes in the direct care of this critically ill patient, excluding procedure time. ED Disposition Clinical Impression: Left-sided weakness, Chest pain Disposition: [id number] OP ADMIT IP TO THIS HOSP Is pt being admited?: Yes Does the pt Need Aspirin: Yes Condition: Fair
[2017-09-25 18:14] LABS: Eosinophils % (Auto) 2.7 % (0.0-4.3); Hematocrit 51.1 % (35.5-45.6); Mean Corpuscular HGB Conc 33 % (32-34); Mean Corpuscular Hemoglobin 31 pg (28-32); Mean Corpuscular Volume 94 fl (84-94); Platelet Count 258 K/mm3 (140-440); Red Blood Count 5.45 M/mm3 (3.65-5.03); Red Cell Distribution Width 15.3 % (13.2-15.2); White Blood Count 3.7 K/mm3 (4.5-11.0)
[2017-09-25 18:25] LABS: Anion Gap 23 mmol/L; BUN/Creatinine Ratio 13; Blood Urea Nitrogen 10 mg/dL (9-20); Calcium 9.4 mg/dL (8.4-10.2); Carbon Dioxide 25 mmol/L (22-30); Chloride 97.5 mmol/L (98-107); Glucose 118 mg/dL (75-100); Potassium 3.9 mmol/L (3.6-5.0); Sodium 142 mmol/L (137-145)
[2017-09-25 18:48] LABS: INR 0.94 (0.87-1.13)
[2017-09-25 18:49] LABS: Partial Thromboplastin Time 30.4 Sec. (24.2-36.6)
--- NOTE | 2017-09-25 19:19 | Cat Scan Report ---
FINAL REPORT PROCEDURE: CT HEAD/BRAIN WO CON TECHNIQUE: Computerized tomography of the head was performed without contrast material. HISTORY: neuro deficits < 6hrs or sx present upon awakening. Alcohol COMPARISON: 06/08/2017 FINDINGS: Skull and scalp: Normal. Paranasal sinuses: Mucosal thickening and fluid in the right sphenoid sinus. Ventricles and subarachnoid spaces: Normal. Cerebrum: No evidence of hemorrhage, acute infarction or mass . Cerebellum, heather and brainstem: Indeterminate area low attenuation left paracentral pontine region measuring 1.3 centimeter range. This is seen on image 13. This could reflect artifact or a left pontine ischemic area of indeterminate age however this was not well seen on the prior study. Can't exclude a acute ischemic process in the left haether. There is extensive motion streak artifact in the heather precluding ability to fully evaluate this area. Additionally there is a small sub centimeter lacunar infarct in the left cerebral peduncle image 16 not well seen on prior study. Vasculature: Both middle cerebral arteries appear slightly more dense than the previous examination but the right does not appear significantly greater in density than left. Right MCA measures 46 HU image 21 and left MCA measures 42 HU image 19. On prior study the left MCA measured 49 and right MCA 49. Comments: Mild to moderate diffuse atrophy with mild periventricular microischemic change and central lacunar infarct disease.. IMPRESSION: Indeterminate aged ischemic change left pontine area versus artifact. Suspect lacunar infarct in the left peduncle possibly or most likely chronic Dense vessels without definitive asymmetric hyperdense MCA sign If symptoms and or concern persist consider MRI Findings discussed with Dr. Stone 7:11 p.m. 09/25/2017
[2017-09-25 19:26] LABS: Urine Drugs of Abuse Note Disclamer
[2017-09-26] MEDS ORDERED: BABY ASPIRIN PO ONE (00:10)
[2017-09-26] MEDS ORDERED: DILAUDID IV ONE (00:50)
--- NOTE | 2017-09-26 00:52 | Cat Scan Report ---
FINAL REPORT EXAM: CT angiography of the head. CT angiography of the neck. HISTORY: cva COMPARISON: None available. TECHNIQUE: Contiguous axial images were obtained. Administration of IV contrast given per institution protocol. Images submitted for interpretation. Sagittal and coronal reformats cannot be submitted at this time. An addendum can be made once those become available. Sagittal and coronal reformats could change final interpretation. For purposes the patient management and highly, this report is being made without sagittal and coronal reformats. FINDINGS: CT angiography of the neck: Minimal calcified plaque along the aortic arch and mild calcified plaque at the origin left subclavian artery. No significant associated stenosis. Minimal calcified plaque at the right carotid bifurcation. No associated stenosis. Otherwise, extracranial portions of the common carotid, internal carotid, vertebral arteries are widely patent. Right vertebral artery is dominant. Spaces of the neck are grossly preserved. Airway is patent. Thyroid gland and salivary glands are unremarkable. CT angiography of the head: Major intracranial arterial vessels are patent. Petrous, cavernous, supraclinoid portions of the internal carotid arteries are grossly patent. Symmetric branching opacification of the anterior, middle, posterior cerebral arteries. Anterior communicating artery and bilateral posterior communicating arteries are present. Intracranial portions the vertebral arteries and basilar artery are patent. No early draining vein. No area of abnormal hypervascular enhancement. IMPRESSION: Minimal calcified plaque at the right carotid bifurcation and mild calcified plaque at the origin of the left subclavian artery. No associated stenosis. Otherwise, extracranial portions of the common carotid, internal carotid, vertebral arteries are widely patent. Major intracranial arterial vessels are widely patent. No high-grade stenosis or occlusion.
[2017-09-26] MEDS ORDERED: ASPIRIN PR ONE ×2 (00:54→01:00)
[2017-09-26] MEDS ORDERED: DILAUDID ONE (01:01)
[2017-09-26] MEDS ORDERED: SODIUM CHLORIDE FLUSH SYRINGE 10 ML IV PRN (01:08)
[2017-09-26] MEDS ORDERED: ZOFRAN IV PRN (01:08)
[2017-09-26] MEDS ORDERED: MILK OF MAGNESIA PO PRN (01:08)
[2017-09-26] MEDS ORDERED: SENOKOT PO PRN (01:08)
[2017-09-26] MEDS ORDERED: PROVENTIL IH PRN (01:08)
[2017-09-26] MEDS ORDERED: TYLENOL PO PRN (01:08)
[2017-09-26] MEDS ORDERED: REGLAN PO PRN (01:08)
[2017-09-26] MEDS ORDERED: PHENERGAN PR PRN (01:08)
[2017-09-26] MEDS ORDERED: DULCOLAX PR PRN (01:08)
--- NOTE | 2017-09-26 01:16 | History and Physical Report ---
History of Present Illness Date of examination: 09/26/17 Date of admission: 09/26/17 00:16 Chief complaint: Left-sided weakness History of present illness: 47 year old -[place]ian male with past medical history significant for obesity, substance abuse, hypertension, hyperlipidemia, gout was brought via EMS for complaints of left-sided weakness that started 45 minutes before presentation. The timing is not reliable because the patient is drunk and confused. He remembers also didn't confirm that. It is also complaining of midsternal chest pain, sharp, 10 out of 10, not radiation, associated with difficulty of breathing, it started with weakness. She has a presented to [facility] and they recommended to admit the patient to our service and MRI , no endovascular treatment or TPA is indicated. UDS was positive for benzo, cocaine and marijuana. Blood test is positive for alcohol level of 0.24. REVIEW OF SYSTEMS: GENERAL: no weight change, no fatigue, no fever HEAD: no head ache EYES: no blurry vision, no acute visual loss EARS: no hearing loss, no discharge, no earache NOSE: no stuffiness, no sneezing, no discharge MOUTH, THROAT AND NECK: no bleeding gums, no sore throat, no swollen neck CARDIAC: As stated in his HPI. RESPIRATORY: no shortness of breath, no wheeze, no cough, no sputum, no hemoptysis, no asthma GI: no decreased appetite, no nausea, no vomiting, no dysphagia, no diarrhea, no constipation, no abdominal pain URINARY: no change in frequency, no urgency, no polyuria, no hematuria, no incontinence MUSCULOSKELETAL: no muscle weakness, no pain, no joint stiffness NEUROLOGIC: As stated in the HPI. HEMATOLOGIC: no anemia, no easy bruising SKIN: no rashes ENDOCRINE: no heat/cold intolerance, no polyuria, no polydipsia, no thyroid problems, no diabetes PSYCHIATRIC: no anxiety, no depression, no suicidal ideations Past History Past Medical History: hypertension, hyperlipidemia Social history: smoking (half a pack/ day), alcohol abuse (half a pint of alcohol), full code. denies: prescription drug abuse, IV drug use Family history: CAD (multiple family members), stroke (mother) Medications and Allergies Allergies Allergy/AdvReac Type Severity Reaction Status Date / Time Penicillins Allergy Unknown Verified 04/21/17 15:46 Home Medications Medication Instructions Recorded Confirmed Last Taken Type methOCARBAMOL [Robaxin TAB] 500 mg PO Q6H PRN #20 tablet 06/08/17 Unknown Rx Exam - Physical Exam Narrative exam: Not in cardiopulmonary distress. The patient is obese. Vital signs as documented. Head exam is unremarkable. No scleral icterus . Neck is without jugular venous distension, thyromegaly, or carotid bruits. Lungs are clear to auscultation. Cardiac exam reveals regular rate and Rhythm. First and second heart sounds normal. No murmurs, rubs or gallops. Abdominal exam reveals normal bowel sounds, no masses, no organomegaly and no aortic enlargement. Extremities are nonedematous and both femoral and pedal pulses are normal. 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 Left-sided hemiplegia. - Constitutional Vitals: Temp Pulse Resp BP Pulse Ox 98.7 F 92 H 13 112/78 97 09/25/17 17:31 09/26/17 00:16 09/26/17 00:16 09/26/17 00:16 09/26/17 00:16 Results - Labs CBC & Chem 7: 09/25/17 17:47 09/25/17 17:47 Labs: Laboratory Last Values WBC 3.7 K/mm3 (4.5-11.0) L 09/25/17 17:47 RBC 5.45 M/mm3 (3.65-5.03) H 09/25/17 17:47 Hgb 17.0 gm/dl (11.8-15.2) H 09/25/17 17:47 Hct 51.1 % (35.5-45.6) H 09/25/17 17:47 MCV 94 fl (84-94) 09/25/17 17:47 MCH 31 pg (28-32) 09/25/17 17:47 MCHC 33 % (32-34) 09/25/17 17:47 RDW 15.3 % (13.2-15.2) H 09/25/17 17:47 Plt Count 258 K/mm3 (140-440) 09/25/17 17:47 Lymph % (Auto) 44.6 % (13.4-35.0) H 09/25/17 17:47 [place] % (Auto) 11.0 % (0.0-7.3) H 09/25/17 17:47 Eos % (Auto) 2.7 % (0.0-4.3) 09/25/17 17:47 Baso % (Auto) 1.0 % (0.0-1.8) 09/25/17 17:47 Lymph # 1.7 K/mm3 (1.2-5.4) 09/25/17 17:47 [place] # 0.4 K/mm3 (0.0-0.8) 09/25/17 17:47 Eos # 0.1 K/mm3 (0.0-0.4) 09/25/17 17:47 Baso # 0.0 K/mm3 (0.0-0.1) 09/25/17 17:47 Seg Neutrophils % 40.7 % (40.0-70.0) 09/25/17 17:47 Seg Neutrophils # 1.5 K/mm3 (1.8-7.7) L 09/25/17 17:47 PT 13.1 Sec. (12.2-14.9) 09/25/17 17:47 INR 0.94 (0.87-1.13) 09/25/17 17:47 APTT 30.4 Sec. (24.2-36.6) 09/25/17 17:47 Thrombin Time 28.1 Sec. (15.1-19.6) H 09/25/17 17:47 Sodium 142 mmol/L (137-145) 09/25/17 17:47 Potassium 3.9 mmol/L (3.6-5.0) 09/25/17 17:47 Chloride 97.5 mmol/L (98-107) L 09/25/17 17:47 Carbon Dioxide 25 mmol/L (22-30) 09/25/17 17:47 Anion Gap 23 mmol/L 09/25/17 17:47 BUN 10 mg/dL (9-20) 09/25/17 17:47 Creatinine 0.8 mg/dL (0.8-1.5) 09/25/17 17:47 Estimated GFR > 60 ml/min 09/25/17 17:47 BUN/Creatinine Ratio 13 % 09/25/17 17:47 Glucose 118 mg/dL (75-100) H 09/25/17 17:47 POC Glucose 132 (70-105) H 11/17/17 17:47 Calcium 9.4 mg/dL (8.4-10.2) 09/25/17 17:47 Troponin T < 0.010 ng/mL (0.00-0.029) 09/25/17 17:47 Urine Opiates Screen Presumptive negative 09/25/17 19:00 Urine Methadone Screen Presumptive negative 09/25/17 19:00 Ur Barbiturates Screen Presumptive negative 09/25/17 19:00 Ur Phencyclidine Scrn Presumptive negative 09/25/17 19:00 Ur Amphetamines Screen Presumptive negative 09/25/17 19:00 U Benzodiazepines Scrn Presumptive positive 09/25/17 19:00 Urine Cocaine Screen Presumptive positive 09/25/17 19:00 U Marijuana (THC) Screen Presumptive positive 09/25/17 19:00 Drugs of Abuse Note Disclamer 09/25/17 19:00 Plasma/Serum Alcohol 0.24 gm% (0-0.07) H 09/25/17 17:47 - Imaging and Cardiology CT Scan - head: report reviewed (left pontine area ischemic change, suspected lacunar infarction on the left side) Assessment and Plan Assessment and plan: Acute CVA with left-sided hemiplegia - CT head shows left pontine ischemic change which doesn't explain the left- sided weakness - CVA workup ordered - [facility] consulted and recommended no TPA or endovascular treatment -Neurology consulted Chest pain - Resistant of troponins were negative, EKG no STEMI - Cardiology consulted Obesity, polysubstance abuse - We will loan counselor once confusion is getting better - Patient is on CIWA protocol for alcohol withdrawal DVT prophylaxis - Lovenox Disposition - Admit to telemetry floor. Advance Directives: Yes VTE prophylaxis?: Chemical Plan of care discussed with patient/family: Yes
[2017-09-26] MEDS ORDERED: NACL 0.9% 1000 ML 1,000 ML IV SCH (02:00)
[2017-09-26] MEDS ORDERED: HALDOL IV PRN (02:17)
[2017-09-26] MEDS ORDERED: ATIVAN IV PRN ×2 (02:17)
[2017-09-26] MEDS: HABITROL TD SCH ×2 (03:32→15:32)
[2017-09-26] MEDS: ATIVAN IV PRN ×2 (03:33→19:06)
[2017-09-26] MEDS: DILAUDID IV PRN ×5 (05:56→21:08)
[2017-09-26] MEDS: DUONEB *Not for PRN Use IH SCH ×4 (06:11→20:58)
[2017-09-26] MEDS: NACL 0.9% 1000 ML 1,000 ML IV SCH ×2 (06:47→21:07)
[2017-09-26] MEDS: ASPIRIN PO SCH (09:15)
[2017-09-26] MEDS: PEPCID PO SCH ×2 (09:16→21:07)
[2017-09-26] MEDS: COLACE PO SCH ×2 (09:16→21:08)
[2017-09-26] MEDS: PULMICORT IH SCH ×2 (09:18→20:58)
--- NOTE | 2017-09-26 09:25 | Consultation ---
History of Present Illness Consult date: 09/26/17 Consult reason: chest pain History of present illness: 47 year old -[place] male with past medical history significant for obesity, substance abuse, hypertension, hyperlipidemia, and gout was brought via EMS for complaints of left-sided weakness that started 45 minutes before presentation. The patient was drunk and confused. He was complaining of midsternal chest pain, sharp, 10 out of 10, not radiation, associated with difficulty of breathing, it started with weakness. UDS was positive for benzo, cocaine and marijuana. Blood test is positive for alcohol level of 0.24. Patient was recently admitted to [facility] a few days ago. Patient had an echo and stress test at that time. Past History Past Medical History: hypertension, hyperlipidemia Social history: smoking (half a pack/ day), alcohol abuse (half a pint of alcohol), full code. denies: prescription drug abuse, IV drug use Family history: CAD (multiple family members), stroke (mother) Medications and Allergies Allergies Allergy/AdvReac Type Severity Reaction Status Date / Time Penicillins Allergy Unknown Verified 04/21/17 15:46 Home Medications Medication Instructions Recorded Confirmed Last Taken Type methOCARBAMOL [Robaxin TAB] 500 mg PO Q6H PRN #20 tablet 06/08/17 09/26/17 Unknown Rx Active Meds: Active Medications Acetaminophen (Tylenol) 650 mg PO Q4H PRN PRN Reason: Pain, Mild (1-3) Albuterol (Proventil) 2.5 mg IH Q3HRT PRN PRN Reason: Shortness Of Breath Albuterol/Ipratropium (Duoneb *Not For Prn Use*) 1 ampul IH Q6HRT [facility] Last Admin: 09/26/17 09:18 Dose: 1 ampul Aspirin (Aspirin) 325 mg PO QDAY [facility] Last Admin: 09/26/17 09:15 Dose: 325 mg Bisacodyl (Dulcolax) 10 mg [place] QDAY PRN PRN Reason: Constipation Budesonide (Pulmicort) 0.5 mg IH Q12HRT [facility] Last Admin: 09/26/17 09:18 Dose: 0.5 mg Docusate Sodium (Colace) 100 mg PO BID [facility] Last Admin: 09/26/17 09:16 Dose: 100 mg Enoxaparin Sodium (Lovenox) 40 mg SUB-Q QDAY@2200 [facility] Famotidine (Pepcid) 20 mg PO BID [facility] Last Admin: 09/26/17 09:16 Dose: 20 mg Haloperidol Lactate (Haldol) 5 mg IV Q1H PRN PRN Reason: Unrespon. to mult. doses BZD's Hydromorphone HCl (Dilaudid) 1 mg IV Q3H PRN PRN Reason: Pain, Moderate (4-6) Last Admin: 09/26/17 09:16 Dose: 1 mg Sodium Chloride (Nacl 0.9% 1000 Ml) 1,000 mls @ 150 mls/hr IV DIRECT [place] Stop: 09/27/17 12:16 Last Admin: 09/26/17 06:47 Dose: 150 mls/hr Lorazepam (Ativan) 2 mg IV Q1H PRN PRN Reason: CIWA-Ar 8-15 Last Admin: 09/26/17 03:33 Dose: 2 mg Lorazepam (Ativan) 4 mg IV Q1H PRN PRN Reason: CIWA-Ar 16-25 Lorazepam (Ativan) 4 mg IV Q15MIN PRN PRN Reason: CIWA-Ar >25 Magnesium Hydroxide (Milk Of Magnesia) 30 ml PO Q4H PRN PRN Reason: Constipation Metoclopramide HCl (Reglan) 10 mg PO Q6H PRN PRN Reason: Nausea And Vomiting Nicotine (Habitrol) 21 mg TD QDAY [facility] Last Admin: 09/26/17 03:32 Dose: 21 mg Ondansetron HCl (Zofran) 4 mg IV Q8H PRN PRN Reason: N/V unrelieved by Reglan Promethazine HCl (Phenergan) 25 mg [place] Q6H PRN PRN Reason: Nausea And Vomiting Senna (Senokot) 8.6 mg PO Q12H PRN PRN Reason: Laxative Effect Sodium Chloride (Sodium Chloride Flush Syringe 10 Ml) 10 ml IV PRN PRN PRN Reason: LINE FLUSH Review of Systems All systems: negative (pertinent positives in HPI) Physical Examination Vital Signs Temp Pulse Resp BP Pulse Ox 98.7 F 111 H 18 117/88 93 09/25/17 17:31 09/25/17 17:31 09/25/17 17:31 09/25/17 17:31 09/25/17 17:31 General appearance: no acute distress HEENT: Positive: PERRL, EOMI Cardiac: Positive: Reg Rate and Rhythm, S1/S2 Lungs: Positive: clear to auscultation Abdomen: Positive: Unremarkable, Soft Extremities: Absent: normal Results 09/25/17 17:47 09/25/17 17:47 Coagulation 09/25/17 Range/Units 17:47 PT 13.1 (12.2-14.9) Sec. INR 0.94 (0.87-1.13) APTT 30.4 (24.2-36.6) Sec. CBC 09/25/17 Range/Units 17:47 WBC 3.7 L (4.5-11.0) K/mm3 RBC 5.45 H (3.65-5.03) M/mm3 Hgb 17.0 H (11.8-15.2) gm/dl Hct 51.1 H (35.5-45.6) % Plt Count 258 (140-440) K/mm3 Lymph # 1.7 (1.2-5.4) K/mm3 [place] # 0.4 (0.0-0.8) K/mm3 Eos # 0.1 (0.0-0.4) K/mm3 Baso # 0.0 (0.0-0.1) K/mm3 Comprehensive Metabolic Panel 09/25/17 Range/Units 17:47 Sodium 142 (137-145) mmol/L Potassium 3.9 (3.6-5.0) mmol/L Chloride 97.5 L (98-107) mmol/L Carbon Dioxide 25 (22-30) mmol/L BUN 10 (9-20) mg/dL Creatinine 0.8 (0.8-1.5) mg/dL Glucose 118 H (75-100) mg/dL Calcium 9.4 (8.4-10.2) mg/dL Assessment and Plan Acute CVA with left-sided hemiplegia - management per neurology and primary Chest pain - Troponin negative. EKG shows sinus rhythm with nonspecific STTW changes. Recommend medical therapy with ASA and statin. No further ischemic evaluation at this time due to polysubstance abuse. May consider further workup outpatient if patient is drug free, particularly for cocaine. Obtain medical records from [place]. Obesity, polysubstance abuse - recommend cessation
--- NOTE | 2017-09-26 10:51 | XRay Report ---
AP CHEST: HISTORY: chest pain There is poor inspiration. AP view of the chest demonstrates a normal mediastinal and cardiac contour with clear lungs and normal bony and soft tissue structures. IMPRESSION: Grossly negative expiratory AP chest. No significant change since 04/21/17.
--- NOTE | 2017-09-26 17:58 | Consultation ---
History of Present Illness Consult date: 09/26/17 History of present illness: see my dictated note on this patient as far as the hx of stroke there was CT and CTA done in the ED and patient was not candidate for tPA neuro exam other than pain in chest and arm is negative at this time Past History Past Medical History: hypertension, hyperlipidemia Social history: smoking (half a pack/ day), alcohol abuse (half a pint of alcohol), full code. denies: prescription drug abuse, IV drug use Family history: CAD (multiple family members), stroke (mother) Medications and Allergies Allergies Allergy/AdvReac Type Severity Reaction Status Date / Time Penicillins Allergy Unknown Verified 04/21/17 15:46 Home Medications Medication Instructions Recorded Confirmed Last Taken Type methOCARBAMOL [Robaxin TAB] 500 mg PO Q6H PRN #20 tablet 06/08/17 09/26/17 Unknown Rx Active Meds: Active Medications Acetaminophen (Tylenol) 650 mg PO Q4H PRN PRN Reason: Pain, Mild (1-3) Albuterol (Proventil) 2.5 mg IH Q3HRT PRN PRN Reason: Shortness Of Breath Albuterol/Ipratropium (Duoneb *Not For Prn Use*) 1 ampul IH Q6HRT [facility] Last Admin: 09/26/17 14:35 Dose: 1 ampul Aspirin (Aspirin) 325 mg PO QDAY [facility] Last Admin: 09/26/17 09:15 Dose: 325 mg Bisacodyl (Dulcolax) 10 mg [place] QDAY PRN PRN Reason: Constipation Budesonide (Pulmicort) 0.5 mg IH Q12HRT [facility] Last Admin: 09/26/17 09:18 Dose: 0.5 mg Docusate Sodium (Colace) 100 mg PO BID [facility] Last Admin: 09/26/17 09:16 Dose: 100 mg Enoxaparin Sodium (Lovenox) 40 mg SUB-Q QDAY@2200 [facility] Famotidine (Pepcid) 20 mg PO BID [facility] Last Admin: 09/26/17 09:16 Dose: 20 mg Haloperidol Lactate (Haldol) 5 mg IV Q1H PRN PRN Reason: Unrespon. to mult. doses BZD's Hydromorphone HCl (Dilaudid) 1 mg IV Q3H PRN PRN Reason: Pain, Moderate (4-6) Last Admin: 09/26/17 15:31 Dose: 1 mg Sodium Chloride (Nacl 0.9% 1000 Ml) 1,000 mls @ 150 mls/hr IV DIRECT [place] Stop: 09/27/17 12:16 Last Admin: 09/26/17 06:47 Dose: 150 mls/hr Lorazepam (Ativan) 2 mg IV Q1H PRN PRN Reason: CIWA-Ar 8-15 Last Admin: 09/26/17 03:33 Dose: 2 mg Lorazepam (Ativan) 4 mg IV Q1H PRN PRN Reason: CIWA-Ar 16-25 Lorazepam (Ativan) 4 mg IV Q15MIN PRN PRN Reason: CIWA-Ar >25 Magnesium Hydroxide (Milk Of Magnesia) 30 ml PO Q4H PRN PRN Reason: Constipation Metoclopramide HCl (Reglan) 10 mg PO Q6H PRN PRN Reason: Nausea And Vomiting Nicotine (Habitrol) 21 mg TD QDAY [facility] Last Admin: 09/26/17 15:32 Dose: 21 mg Ondansetron HCl (Zofran) 4 mg IV Q8H PRN PRN Reason: N/V unrelieved by Reglan Promethazine HCl (Phenergan) 25 mg [place] Q6H PRN PRN Reason: Nausea And Vomiting Senna (Senokot) 8.6 mg PO Q12H PRN PRN Reason: Laxative Effect Sodium Chloride (Sodium Chloride Flush Syringe 10 Ml) 10 ml IV PRN PRN PRN Reason: LINE FLUSH Physical Examination - Vital Signs Vital Signs: Vital Signs Temp Pulse Resp BP Pulse Ox 98.7 F 111 H 18 117/88 93 09/25/17 17:31 09/25/17 17:31 09/25/17 17:31 09/25/17 17:31 09/25/17 17:31 Results - Laboratory Findings CBC and BMP: 09/25/17 17:47 09/25/17 17:47 Abnormal Lab Findings: Abnormal Labs 09/25/17 09/25/17 09/25/17 17:47 17:47 17:47 WBC 3.7 L RBC 5.45 H Hgb 17.0 H Hct 51.1 H RDW 15.3 H Lymph % (Auto) 44.6 H [place] % (Auto) 11.0 H Seg Neutrophils # 1.5 L Thrombin Time Chloride 97.5 L Glucose 118 H POC Glucose Plasma/Serum Alcohol 0.24 H 09/25/17 09/25/17 17:47 17:47 WBC RBC Hgb Hct RDW Lymph % (Auto) [place] % (Auto) Seg Neutrophils # Thrombin Time 28.1 H Chloride Glucose POC Glucose 132 H Plasma/Serum Alcohol
[2017-09-26] MEDS: LOVENOX SUB-Q SCH (21:08)
[2017-09-26] MEDS: INDOCIN PO SCH (22:48)
[2017-09-27] MEDS: DILAUDID IV PRN ×4 (00:24→20:46)
--- NOTE | 2017-09-27 00:55 | Consultation ---
HISTORY OF PRESENT ILLNESS: This is a 47-year-old black male that presents to the hospital with a chief complaint of left-sided weakness, chest pain, nausea. Apparently after being evaluated, ED physician spoke with his nephew, stated that he was found at home alone and was complaining of left-sided pain and was apparently drinking alcohol the entire day, previously took Robaxin 750 t.i.d. for muscle spasms. He has a prior history of atrial fib, high cholesterol, gout and obesity. He has prior history of left and right leg surgeries. He was evaluated in the ED grossly. His neurological examination was normal. The patient had blood pressures that were normotensive. He was afebrile. His pulse rate was 101, O2 sats are in the range of 97-99, and while he was assessed, he remained essentially stable. He was felt not to be a candidate for endovascular intervention on the CT. The CT angio of the neck was negative for large vessel dissection. The patient's CT of the brain suggesting subacute ischemia. At this point, the patient complains of chest pain. PHYSICAL EXAMINATION: On my examination shows VITAL SIGNS: His blood pressure is 127/87, O2 sat is 99%, pulse rate is 82, respirations 18. NEUROLOGIC: Cranial nerves are intact. Speech clear. Affect appropriate. Neck supple. Face symmetrical to motor and sensory testing. No drift to extremities is present. He is eating well, swallowing well. Speech is good. No aphasia is present. His NIH stroke scale is 0. IMPRESSION: This patient is suspected to having transient ischemic attacks. In addition, he also has a history of diffuse muscle aches, pain, some form of rheumatoid disease might be considered. Would recommend further workup of same. Will check sed rate. Would be worth getting his carotid artery ultrasound on this patient. JOB# [id number] KEHINDE/NTS
[2017-09-27] MEDS: INDOCIN PO SCH ×4 (03:50→23:07)
[2017-09-27] MEDS: DUONEB *Not for PRN Use IH SCH ×4 (03:53→21:13)
[2017-09-27] MEDS: PULMICORT IH SCH ×2 (07:42→21:13)
--- NOTE | 2017-09-27 09:12 | Progress Note ---
Assessment and Plan Acute CVA with left-sided hemiplegia - management per neurology and primary Chest pain - Troponin negative. EKG shows sinus rhythm with nonspecific STTW changes. Recommend medical therapy with ASA and statin. No further ischemic evaluation at this time due to polysubstance abuse. May consider further workup outpatient if patient is drug free, particularly for cocaine. Awaiting medical records from [place]. Obesity, polysubstance abuse - recommend cessation. Subjective Date of service: 09/27/17 Interval history: No acute events. Resting comfortably. No chest pain or SOB. Objective Vital Signs Temp Pulse Pulse Resp Resp BP BP 09/27/17 08:37 09/27/17 08:11 72 20 09/27/17 07:40 66 20 09/27/17 04:55 97.9 F 81 17 117/74 09/27/17 04:00 62 09/27/17 00:06 97.9 F 74 21 124/87 09/26/17 21:08 85 18 09/26/17 20:58 90 18 09/26/17 20:07 98.1 F 88 18 132/81 09/26/17 16:56 98.2 F 18 129/90 09/26/17 14:35 80 18 09/26/17 13:45 78 18 09/26/17 10:22 97.6 F 82 18 127/87 09/26/17 09:28 74 18 09/26/17 09:27 09/26/17 09:18 81 18 Pulse Ox 09/27/17 08:37 98 09/27/17 08:11 09/27/17 07:40 98 09/27/17 04:55 100 09/27/17 04:00 09/27/17 00:06 97 09/26/17 21:08 09/26/17 20:58 98 09/26/17 20:07 96 09/26/17 16:56 09/26/17 14:35 09/26/17 13:45 09/26/17 10:22 99 09/26/17 09:28 09/26/17 09:27 98 09/26/17 09:18 99 - Physical Examination HEENT: Positive: PERRL, EOMI Abdomen: Positive: Unremarkable, Soft Extremities: Absent: normal
[2017-09-27] MEDS: ASPIRIN PO SCH (11:37)
[2017-09-27] MEDS: COLACE PO SCH ×2 (11:37→23:07)
[2017-09-27] MEDS: HABITROL TD SCH (11:37)
[2017-09-27] MEDS: ATIVAN IV PRN (11:38)
[2017-09-27] MEDS: PEPCID PO SCH ×2 (11:38→23:07)
--- NOTE | 2017-09-27 12:33 | Magnetic Resonance Report ---
MRI OF THE BRAIN WITHOUT CONTRAST: HISTORY: Stroke PROCEDURE: Multiplanar, multisequence MR imaging of the brain without IV contrast was performed. FINDINGS: Compared to the CT head without contrast dated 09/25/17. The brain parenchyma signal intensity and its gardner white interface are within normal limits on all sequences. No evidence for acute ischemia, hemorrhage or mass. No chronic infarct or extra-axial fluid collection. The midline structures are central. The basal cisterns are patent. Normal ventricular size. The orbital cavities and sella turcica demonstrate no abnormality. The visualized paranasal sinuses and mastoid air cells are well aerated. IMPRESSION: MRI brain within normal limits. No evidence for acute CVA.
--- NOTE | 2017-09-27 17:23 | Progress Note ---
Assessment and Plan Assessment and plan: --Possible Acute ischemic CVA with left-sided weakness Neuro workup CT head, possible left pontine ischemia, MRI negative for acute abnormality Carotid Doppler, echocardiogram is within normal limits, Aspirin and statin Continue physical therapy and occupational therapy rehabilitation --In ER Tele neurologist was consulted and no TPA or endovascular treatment indicated --Neurology consulted noted and appreciated --Atypical Chest pain; cardiology evaluated the patient [facility] obtain medical records --Polysubstance abuse; U tox; positive for cocaine, marijuana, amphetamines Counseling done patient strongly advised to quit recreational drug use --Alcohol intoxication; continue CIWA protocol Counseling done patient advised to quit alcohol intake --Obesity, BMI 35.1 Diet modification, exercise as tolerated and weight reduction when medically stable --DVT prophylaxis; Lovenox Closely monitor the patient and adjust management as needed Psych evaluation as needed Closely monitor the patient and adjust management Plan of care discussed with patient and his nurse We will try to contact next of kin and discuss treatment plan History Interval history: Patient seen and examined medical records reviewed No new events reported by the nursing staff Admitted with acute CVA, neuro workup is in progress The patient complains of generalized body pains asked for pain medications Hospitalist Physical - Constitutional Vitals: Temp Pulse Resp BP Pulse Ox 97.9 F 80 20 117/74 98 09/27/17 04:55 09/27/17 15:46 09/27/17 15:46 09/27/17 04:55 09/27/17 08:37 General appearance: Present: no acute distress, obese - EENT Eyes: Present: PERRL, EOM intact - Neck Neck: Present: supple, normal ROM - Respiratory Respiratory effort: normal Respiratory: bilateral: diminished, negative: rales, rhonchi, wheezing - Cardiovascular Rhythm: regular Heart Sounds: Present: S1 & S2 - Extremities Extremities: no ischemia, No edema Peripheral Pulses: within normal limits - Abdominal General gastrointestinal: soft, non-tender, non-distended, normal bowel sounds - Integumentary Integumentary: Present: clear, warm - Psychiatric Psychiatric: appropriate mood/affect, cooperative - Neurologic Neurologic: other (CVA with left-sided hemiparesis) Results - Labs CBC & Chem 7: 09/25/17 17:47 09/25/17 17:47 Labs: Laboratory Last Values WBC 3.7 K/mm3 (4.5-11.0) L 09/25/17 17:47 RBC 5.45 M/mm3 (3.65-5.03) H 09/25/17 17:47 Hgb 17.0 gm/dl (11.8-15.2) H 09/25/17 17:47 Hct 51.1 % (35.5-45.6) H 09/25/17 17:47 MCV 94 fl (84-94) 09/25/17 17:47 MCH 31 pg (28-32) 09/25/17 17:47 MCHC 33 % (32-34) 09/25/17 17:47 RDW 15.3 % (13.2-15.2) H 09/25/17 17:47 Plt Count 258 K/mm3 (140-440) 09/25/17 17:47 Lymph % (Auto) 44.6 % (13.4-35.0) H 09/25/17 17:47 [place] % (Auto) 11.0 % (0.0-7.3) H 09/25/17 17:47 Eos % (Auto) 2.7 % (0.0-4.3) 09/25/17 17:47 Baso % (Auto) 1.0 % (0.0-1.8) 09/25/17 17:47 Lymph # 1.7 K/mm3 (1.2-5.4) 09/25/17 17:47 [place] # 0.4 K/mm3 (0.0-0.8) 09/25/17 17:47 Eos # 0.1 K/mm3 (0.0-0.4) 09/25/17 17:47 Baso # 0.0 K/mm3 (0.0-0.1) 09/25/17 17:47 Seg Neutrophils % 40.7 % (40.0-70.0) 09/25/17 17:47 Seg Neutrophils # 1.5 K/mm3 (1.8-7.7) L 09/25/17 17:47 PT 13.1 Sec. (12.2-14.9) 09/25/17 17:47 INR 0.94 (0.87-1.13) 09/25/17 17:47 APTT 30.4 Sec. (24.2-36.6) 09/25/17 17:47 Thrombin Time 28.1 Sec. (15.1-19.6) H 09/25/17 17:47 Sodium 142 mmol/L (137-145) 09/25/17 17:47 Potassium 3.9 mmol/L (3.6-5.0) 09/25/17 17:47 Chloride 97.5 mmol/L (98-107) L 09/25/17 17:47 Carbon Dioxide 25 mmol/L (22-30) 09/25/17 17:47 Anion Gap 23 mmol/L 09/25/17 17:47 BUN 10 mg/dL (9-20) 09/25/17 17:47 Creatinine 0.8 mg/dL (0.8-1.5) 09/25/17 17:47 Estimated GFR > 60 ml/min 09/25/17 17:47 BUN/Creatinine Ratio 13 % 09/25/17 17:47 Glucose 118 mg/dL (75-100) H 09/25/17 17:47 POC Glucose 89 (70-105) 09/27/17 07:28 Uric Acid 7.1 mg/dL (3.5-7.6) 09/26/17 21:47 Calcium 9.4 mg/dL (8.4-10.2) 09/25/17 17:47 Troponin T < 0.010 ng/mL (0.00-0.029) 09/26/17 02:34 Triglycerides 126 mg/dL (2-149) 09/27/17 15:01 Cholesterol 112 mg/dL (50-199) 09/27/17 15:01 LDL Cholesterol Direct 41 mg/dL (50-130) L 09/27/17 15:01 HDL Cholesterol 46 mg/dL (40-59) 09/27/17 15:01 Cholesterol/HDL Ratio 2.43 % 09/27/17 15:01 Urine Opiates Screen Presumptive negative 09/25/17 19:00 Urine Methadone Screen Presumptive negative 09/25/17 19:00 Ur Barbiturates Screen Presumptive negative 09/25/17 19:00 Ur Phencyclidine Scrn Presumptive negative 09/25/17 19:00 Ur Amphetamines Screen Presumptive negative 09/25/17 19:00 U Benzodiazepines Scrn Presumptive positive 09/25/17 19:00 Urine Cocaine Screen Presumptive positive 09/25/17 19:00 U Marijuana (THC) Screen Presumptive positive 09/25/17 19:00 Drugs of Abuse Note Disclamer 09/25/17 19:00 Plasma/Serum Alcohol 0.24 gm% (0-0.07) H 09/25/17 17:47
[2017-09-27] MEDS: LOVENOX SUB-Q SCH (23:07)
[2017-09-28] MEDS: DUONEB *Not for PRN Use IH SCH ×4 (02:00→20:30)
[2017-09-28] MEDS: DILAUDID IV PRN ×3 (04:33→23:24)
[2017-09-28] MEDS: INDOCIN PO SCH ×4 (04:34→23:24)
[2017-09-28] MEDS: ASPIRIN PO SCH (09:00)
[2017-09-28] MEDS: COLACE PO SCH ×2 (09:01→23:22)
[2017-09-28] MEDS: PEPCID PO SCH ×2 (09:01→23:23)
[2017-09-28] MEDS: HABITROL TD SCH (09:01)
[2017-09-28] MEDS: PULMICORT IH SCH ×2 (09:25→20:30)
--- NOTE | 2017-09-28 11:11 | Progress Note ---
Assessment and Plan Assessment and plan: --Possible Acute ischemic CVA with left-sided weakness Neuro workup so far is negative, neurology following CT head, possible left pontine ischemia, however MRI negative for acute abnormality Carotid Doppler, echocardiogram is within normal limits, Aspirin and statin Continue physical therapy and occupational therapy rehabilitation --Not a candidate for TPA or endovascular treatment --Atypical Chest pain; cardiology following Patient had negative stress test at [facility] one week ago, obtain medical records --Polysubstance abuse; U tox; positive for cocaine, marijuana, benzodiazepines Counseling done patient strongly advised to quit recreational drug use --Alcohol intoxication; continue CIWA protocol Counseling done patient advised to quit alcohol intake --Obesity, BMI 35.1 Diet modification, exercise as tolerated and weight reduction when medically stable --DVT prophylaxis; Lovenox Physical therapy occupational therapy evaluation. And management Possible discharge in 1-2 days if stable DC planning. Case management, home with home health versus rehabilitation placement We will try to contact next of kin /mother in [place] and discuss the treatment plan History Interval history: Patient seen and examined, Medical records reviewed Patient feels better, complains of some thoughts in his mind, unable to express Denies suicidal thought or ideation Denies hallucination or delusions Vital signs reviewed Hospitalist Physical - Constitutional Vitals: Temp Pulse Resp BP Pulse Ox 97.9 F 63 18 157/122 100 09/28/17 07:16 09/28/17 09:35 09/28/17 09:35 09/28/17 07:16 09/28/17 09:25 General appearance: Present: no acute distress, obese - EENT Eyes: Present: PERRL, EOM intact - Neck Neck: Present: supple, normal ROM - Respiratory Respiratory effort: normal Respiratory: bilateral: diminished, negative: rales, rhonchi, wheezing - Cardiovascular Rhythm: regular Heart Sounds: Present: S1 & S2 - Extremities Extremities: no ischemia, No edema - Abdominal General gastrointestinal: soft, non-tender, non-distended, normal bowel sounds - Integumentary Integumentary: Present: clear, warm - Psychiatric Psychiatric: appropriate mood/affect, cooperative - Neurologic Neurologic: other (left-sided weakness) Results - Labs CBC & Chem 7: 09/25/17 17:47 09/25/17 17:47 Labs: Laboratory Last Values WBC 3.7 K/mm3 (4.5-11.0) L 09/25/17 17:47 RBC 5.45 M/mm3 (3.65-5.03) H 09/25/17 17:47 Hgb 17.0 gm/dl (11.8-15.2) H 09/25/17 17:47 Hct 51.1 % (35.5-45.6) H 09/25/17 17:47 MCV 94 fl (84-94) 09/25/17 17:47 MCH 31 pg (28-32) 09/25/17 17:47 MCHC 33 % (32-34) 09/25/17 17:47 RDW 15.3 % (13.2-15.2) H 09/25/17 17:47 Plt Count 258 K/mm3 (140-440) 09/25/17 17:47 Lymph % (Auto) 44.6 % (13.4-35.0) H 09/25/17 17:47 [place] % (Auto) 11.0 % (0.0-7.3) H 09/25/17 17:47 Eos % (Auto) 2.7 % (0.0-4.3) 09/25/17 17:47 Baso % (Auto) 1.0 % (0.0-1.8) 09/25/17 17:47 Lymph # 1.7 K/mm3 (1.2-5.4) 09/25/17 17:47 [place] # 0.4 K/mm3 (0.0-0.8) 09/25/17 17:47 Eos # 0.1 K/mm3 (0.0-0.4) 09/25/17 17:47 Baso # 0.0 K/mm3 (0.0-0.1) 09/25/17 17:47 Seg Neutrophils % 40.7 % (40.0-70.0) 09/25/17 17:47 Seg Neutrophils # 1.5 K/mm3 (1.8-7.7) L 09/25/17 17:47 PT 13.1 Sec. (12.2-14.9) 09/25/17 17:47 INR 0.94 (0.87-1.13) 09/25/17 17:47 APTT 30.4 Sec. (24.2-36.6) 09/25/17 17:47 Thrombin Time 28.1 Sec. (15.1-19.6) H 09/25/17 17:47 Sodium 142 mmol/L (137-145) 09/25/17 17:47 Potassium 3.9 mmol/L (3.6-5.0) 09/25/17 17:47 Chloride 97.5 mmol/L (98-107) L 09/25/17 17:47 Carbon Dioxide 25 mmol/L (22-30) 09/25/17 17:47 Anion Gap 23 mmol/L 09/25/17 17:47 BUN 10 mg/dL (9-20) 09/25/17 17:47 Creatinine 0.8 mg/dL (0.8-1.5) 09/25/17 17:47 Estimated GFR > 60 ml/min 09/25/17 17:47 BUN/Creatinine Ratio 13 % 09/25/17 17:47 Glucose 118 mg/dL (75-100) H 09/25/17 17:47 POC Glucose 89 (70-105) 09/27/17 07:28 Uric Acid 7.1 mg/dL (3.5-7.6) 09/26/17 21:47 Calcium 9.4 mg/dL (8.4-10.2) 09/25/17 17:47 Troponin T < 0.010 ng/mL (0.00-0.029) 09/26/17 02:34 Triglycerides 126 mg/dL (2-149) 09/27/17 15:01 Cholesterol 112 mg/dL (50-199) 09/27/17 15:01 LDL Cholesterol Direct 41 mg/dL (50-130) L 09/27/17 15:01 HDL Cholesterol 46 mg/dL (40-59) 09/27/17 15:01 Cholesterol/HDL Ratio 2.43 % 09/27/17 15:01 Urine Opiates Screen Presumptive negative 09/25/17 19:00 Urine Methadone Screen Presumptive negative 09/25/17 19:00 Ur Barbiturates Screen Presumptive negative 09/25/17 19:00 Ur Phencyclidine Scrn Presumptive negative 09/25/17 19:00 Ur Amphetamines Screen Presumptive negative 09/25/17 19:00 U Benzodiazepines Scrn Presumptive positive 09/25/17 19:00 Urine Cocaine Screen Presumptive positive 09/25/17 19:00 U Marijuana (THC) Screen Presumptive positive 09/25/17 19:00 Drugs of Abuse Note Disclamer 09/25/17 19:00 Plasma/Serum Alcohol 0.24 gm% (0-0.07) H 09/25/17 17:47
[2017-09-28] MEDS: APRESOLINE IV PRN (12:54)
--- NOTE | 2017-09-28 13:35 | Progress Note ---
Assessment and Plan - Patient Problems (1) Chest pain Current Visit: Yes Status: Acute Plan to address problem: atypical normal stress thallium test at [facility] 3 weeks ago. normal LVEF, 50-55% on echocardiogram this admission. Subjective Date of service: 09/28/17 Interval history: Patient complains of chest pain. There are no aggravating or relieving factors. Also complains of headaches. Objective Vital Signs Temp Pulse Pulse Resp Resp BP BP 09/28/17 09:35 63 18 09/28/17 09:25 60 18 09/28/17 07:17 83 09/28/17 07:16 97.9 F 83 20 157/122 09/28/17 07:15 97.9 F 83 18 157/122 09/28/17 04:13 98.2 F 79 20 157/87 09/28/17 04:00 83 09/28/17 00:20 18 09/28/17 00:16 98.3 F 88 21 140/85 09/27/17 21:28 80 15 09/27/17 21:13 09/27/17 21:00 80 15 09/27/17 19:27 98.3 F 89 20 141/88 09/27/17 18:52 97.6 F 84 20 167/99 09/27/17 15:46 80 20 09/27/17 15:38 89 09/27/17 15:30 82 20 Pulse Ox 09/28/17 09:35 09/28/17 09:25 100 09/28/17 07:17 99 09/28/17 07:16 99 09/28/17 07:15 99 09/28/17 04:13 98 09/28/17 04:00 09/28/17 00:20 09/28/17 00:16 96 09/27/17 21:28 09/27/17 21:13 100 09/27/17 21:00 09/27/17 19:27 95 09/27/17 18:52 100 09/27/17 15:46 09/27/17 15:38 99 09/27/17 15:30 - Physical Examination General: No Apparent Distress HEENT: Positive: PERRL Cardiac: Positive: Reg Rate and Rhythm Lungs: Positive: Decreased Breath Sounds Neuro: Positive: Grossly Intact Extremities: Absent: normal - Labs and Meds Lipids 09/27/17 Range/Units 15:01 Triglycerides 126 (2-149) mg/dL Cholesterol 112 (50-199) mg/dL HDL Cholesterol 46 (40-59) mg/dL Cholesterol/HDL Ratio 2.43 %
[2017-09-28] MEDS: APRESOLINE PO SCH ×2 (15:27→23:23)
[2017-09-28] MEDS: LOVENOX SUB-Q SCH (23:24)
[2017-09-29] MEDS: DUONEB *Not for PRN Use IH SCH ×4 (02:30→20:33)
[2017-09-29] MEDS: INDOCIN PO SCH ×4 (04:10→21:40)
[2017-09-29] MEDS: APRESOLINE PO SCH ×3 (06:33→21:40)
[2017-09-29] MEDS: APRESOLINE IV PRN ×2 (08:04→19:06)
[2017-09-29] MEDS: DILAUDID IV PRN ×3 (08:04→21:46)
--- NOTE | 2017-09-29 09:11 | Progress Note ---
Assessment and Plan - Patient Problems (1) Chest pain Current Visit: Yes Status: Acute Plan to address problem: atypical normal stress thallium test at [facility] 2-3 weeks ago. normal LVEF, 50-55% on echocardiogram this admission. Conservative cardiac management. Subjective Date of service: 09/29/17 Interval history: Patient denies chest pain and shortness of breath. Objective Vital Signs Temp Pulse Pulse Resp Resp BP Pulse Ox 09/29/17 08:04 179/121 09/29/17 06:33 148/106 09/29/17 05:39 88 09/29/17 02:42 92 H 18 09/29/17 02:30 88 18 09/29/17 00:07 98.3 F 87 19 148/106 92 09/28/17 23:23 99 H 176/107 09/28/17 20:50 94 H 18 09/28/17 20:35 98.7 F 99 H 20 176/107 92 09/28/17 20:33 91 H 18 09/28/17 17:55 96 H 149/104 99 09/28/17 15:27 110 H 152/102 09/28/17 15:01 120 H 178/111 96 09/28/17 14:17 111 H 152/102 96 09/28/17 13:51 89 18 09/28/17 13:41 84 18 09/28/17 10:46 80 100 09/28/17 09:35 63 18 09/28/17 09:25 60 18 100 - Physical Examination General: No Apparent Distress HEENT: Positive: PERRL Cardiac: Positive: Reg Rate and Rhythm Lungs: Positive: Decreased Breath Sounds Neuro: Positive: Grossly Intact Extremities: Absent: normal
--- NOTE | 2017-09-29 10:26 | XRay Report ---
RIGHT KNEE, 3 views: History: Pain. A moderate joint effusion is identified on the lateral image. No evidence for fracture or bone lesion. No significant degenerative changes. IMPRESSION: Joint effusion. No bony abnormality detected. If internal derangement is suspected, MRI could be obtained.
[2017-09-29] MEDS: COLACE PO SCH ×2 (11:13→21:39)
[2017-09-29] MEDS: PEPCID PO SCH ×2 (11:14→21:40)
[2017-09-29] MEDS: ASPIRIN PO SCH (11:14)
[2017-09-29] MEDS: HABITROL TD SCH (11:14)
[2017-09-29] MEDS ORDERED: APRESOLINE PO ONE (11:30)
[2017-09-29] MEDS: PULMICORT IH SCH ×2 (12:27→20:33)
--- NOTE | 2017-09-29 17:10 | Progress Note ---
Assessment and Plan Assessment and plan: --I discussed with patient's mother Psychiatrist [place]. Patient has history of bipolar disorder not on any medications Mother reports that Patient is in denial of his bipolar disorder, was admitted to inpatient psych facility 2- 3 years ago in [place] Psych evaluation, supportive care --Neurologic symptoms at the time of admission/not a candidate for TPA Neuro workup so far is negative, not consistent with CVA CT head, possible left pontine ischemia, however MRI negative for acute abnormality Carotid Doppler, echocardiogram is within normal limits, Aspirin and statin Continue physical therapy and occupational therapy page therapy --Atypical Chest pain; cardiology following Patient had negative stress test at [facility] one week ago, obtain medical records --Polysubstance abuse; U tox; positive for cocaine, marijuana, benzodiazepines Counseling done patient strongly advised to quit recreational drug use --Right knee pain; knee x-ray negative for acute abnormalities, physical therapy --Alcohol intoxication; continue CIWA protocol Counseling done patient advised to quit alcohol intake --Obesity, BMI 35.1 Diet modification, exercise as tolerated and weight reduction when medically stable --DVT prophylaxis; Lovenox Physical therapy occupational therapy evaluation. And management Follow psych evaluation , DC Possible discharge in 1-2 days if stable History Interval history: Patient seen and examined, medical records reviewed Patient feels slightly better, asked me to talk to his mother who is a psychiatrist, , in [place] Denies chest pain or shortness of breath Left-sided weakness resolved Denies depressive or suicidal thoughts, Hospitalist Physical - Constitutional Vitals: Temp Pulse Resp BP Pulse Ox 98.3 F 83 18 179/106 92 09/29/17 00:07 09/29/17 12:28 09/29/17 12:28 09/29/17 15:20 09/29/17 00:07 General appearance: Present: no acute distress, well-nourished, obese - EENT Eyes: Present: PERRL, EOM intact - Neck Neck: Present: supple, normal ROM - Respiratory Respiratory effort: normal Respiratory: bilateral: diminished, negative: rales, rhonchi, wheezing - Cardiovascular Rhythm: regular Heart Sounds: Present: S1 & S2 - Extremities Extremities: no ischemia, No edema, abnormal (very minimal swelling of the right knee) - Abdominal General gastrointestinal: soft, non-tender, non-distended, normal bowel sounds - Integumentary Integumentary: Present: clear, warm - Psychiatric Psychiatric: appropriate mood/affect, cooperative - Neurologic Neurologic: CNII-XII intact, moves all extremities Results - Labs CBC & Chem 7: 09/25/17 17:47 11 17:47 Labs: Laboratory Last Values WBC 3.7 K/mm3 (4.5-11.0) L 09/25/17 17:47 RBC 5.45 M/mm3 (3.65-5.03) H 09/25/17 17:47 Hgb 17.0 gm/dl (11.8-15.2) H 09/25/17 17:47 Hct 51.1 % (35.5-45.6) H 09/25/17 17:47 MCV 94 fl (84-94) 09/25/17 17:47 MCH 31 pg (28-32) 09/25/17 17:47 MCHC 33 % (32-34) 09/25/17 17:47 RDW 15.3 % (13.2-15.2) H 09/25/17 17:47 Plt Count 258 K/mm3 (140-440) 09/25/17 17:47 Lymph % (Auto) 44.6 % (13.4-35.0) H 09/25/17 17:47 [place] % (Auto) 11.0 % (0.0-7.3) H 09/25/17 17:47 Eos % (Auto) 2.7 % (0.0-4.3) 09/25/17 17:47 Baso % (Auto) 1.0 % (0.0-1.8) 09/25/17 17:47 Lymph # 1.7 K/mm3 (1.2-5.4) 09/25/17 17:47 [place] # 0.4 K/mm3 (0.0-0.8) 09/25/17 17:47 Eos # 0.1 K/mm3 (0.0-0.4) 09/25/17 17:47 Baso # 0.0 K/mm3 (0.0-0.1) 09/25/17 17:47 Seg Neutrophils % 40.7 % (40.0-70.0) 09/25/17 17:47 Seg Neutrophils # 1.5 K/mm3 (1.8-7.7) L 09/25/17 17:47 PT 13.1 Sec. (12.2-14.9) 09/25/17 17:47 INR 0.94 (0.87-1.13) 09/25/17 17:47 APTT 30.4 Sec. (24.2-36.6) 09/25/17 17:47 Thrombin Time 28.1 Sec. (15.1-19.6) H 09/25/17 17:47 Sodium 142 mmol/L (137-145) 09/25/17 17:47 Potassium 3.9 mmol/L (3.6-5.0) 09/25/17 17:47 Chloride 97.5 mmol/L (98-107) L 09/25/17 17:47 Carbon Dioxide 25 mmol/L (22-30) 09/25/17 17:47 Anion Gap 23 mmol/L 09/25/17 17:47 BUN 10 mg/dL (9-20) 09/25/17 17:47 Creatinine 0.8 mg/dL (0.8-1.5) 09/25/17 17:47 Estimated GFR > 60 ml/min 09/25/17 17:47 BUN/Creatinine Ratio 13 % 09/25/17 17:47 Glucose 118 mg/dL (75-100) H 09/25/17 17:47 POC Glucose 89 (70-105) 09/27/17 07:28 Uric Acid 7.1 mg/dL (3.5-7.6) 09/26/17 21:47 Calcium 9.4 mg/dL (8.4-10.2) 09/25/17 17:47 Troponin T < 0.010 ng/mL (0.00-0.029) 09/26/17 02:34 Triglycerides 126 mg/dL (2-149) 09/27/17 15:01 Cholesterol 112 mg/dL (50-199) 09/27/17 15:01 LDL Cholesterol Direct 41 mg/dL (50-130) L 09/27/17 15:01 HDL Cholesterol 46 mg/dL (40-59) 09/27/17 15:01 Cholesterol/HDL Ratio 2.43 % 09/27/17 15:01 Urine Opiates Screen Presumptive negative 09/25/17 19:00 Urine Methadone Screen Presumptive negative 09/25/17 19:00 Ur Barbiturates Screen Presumptive negative 09/25/17 19:00 Ur Phencyclidine Scrn Presumptive negative 09/25/17 19:00 Ur Amphetamines Screen Presumptive negative 09/25/17 19:00 U Benzodiazepines Scrn Presumptive positive 09/25/17 19:00 Urine Cocaine Screen Presumptive positive 09/25/17 19:00 U Marijuana (THC) Screen Presumptive positive 09/25/17 19:00 Drugs of Abuse Note Disclamer 09/25/17 19:00 Plasma/Serum Alcohol 0.24 gm% (0-0.07) H 09/25/17 17:47
[2017-09-29] MEDS: LOVENOX SUB-Q SCH (21:41)
[2017-09-30] MEDS: DILAUDID IV PRN ×3 (03:46→15:18)
[2017-09-30] MEDS: INDOCIN PO SCH ×3 (03:51→16:38)
[2017-09-30] MEDS: APRESOLINE PO SCH ×3 (06:54→13:34)
[2017-09-30] MEDS: HABITROL TD SCH (09:34)
[2017-09-30] MEDS: COLACE PO SCH (09:34)
[2017-09-30] MEDS: PEPCID PO SCH (09:34)
[2017-09-30] MEDS: ASPIRIN PO SCH (09:34)
--- NOTE | 2017-09-30 09:59 | Progress Note ---
Assessment and Plan - Patient Problems (1) Chest pain Current Visit: Yes Status: Acute Plan to address problem: atypical normal stress thallium test at [facility] 2-3 weeks ago. normal LVEF, 50-55% on echocardiogram this admission. Conservative cardiac management. Subjective Date of service: 09/30/17 Interval history: Patient denies chest pain and shortness of breath. Objective Vital Signs Temp Pulse Pulse Pulse Resp Resp Resp 09/30/17 07:31 59 L 09/30/17 07:27 97.5 F L 78 20 09/30/17 06:54 92 H 09/30/17 04:49 97.8 F 92 H 18 09/29/17 23:59 98.2 F 87 20 09/29/17 21:40 93 H 09/29/17 20:43 92 H 16 09/29/17 20:33 87 16 09/29/17 20:05 93 H 09/29/17 20:00 98.9 F 93 H 20 09/29/17 19:06 09/29/17 15:20 09/29/17 12:28 83 90 18 18 09/29/17 12:19 09/29/17 11:17 91 H BP Pulse Ox 09/30/17 07:31 100 09/30/17 07:27 166/118 100 09/30/17 06:54 148/98 09/30/17 04:49 148/98 97 09/29/17 23:59 156/101 98 09/29/17 21:40 164/111 09/29/17 20:43 09/29/17 20:33 09/29/17 20:05 09/29/17 20:00 164/111 98 09/29/17 19:06 179/106 09/29/17 15:20 179/106 09/29/17 12:28 09/29/17 12:19 156/100 09/29/17 11:17 137/85 - Physical Examination General: No Apparent Distress HEENT: Positive: PERRL Cardiac: Positive: Reg Rate and Rhythm Lungs: Positive: Decreased Breath Sounds Neuro: Positive: Grossly Intact Extremities: Absent: normal
[2017-09-30] MEDS: APRESOLINE IV PRN ×2 (10:20→12:44)
[2017-09-30] MEDS: DUONEB *Not for PRN Use IH SCH ×2 (11:19→16:35)
[2017-09-30] MEDS: PULMICORT IH SCH (11:22)
[2017-09-30] MEDS ORDERED: APRESOLINE PO SCH ×2 (16:04→17:00)
[2017-09-30] MEDS ORDERED: ULTRAM PO PRN (16:06)
--- NOTE | 2017-09-30 16:27 | Discharge Summary ---
Providers - Providers Date of Admission: 09/26/17 00:16 Date of discharge: 09/30/17 Attending physician: JOSE STEELE 09/26/17 Consult to Physician [CONS] Routine Consulting Provider: KATHRYN LAM Reason For Exam: CVA Place consult to:: Neurology Notified:: a service Phone number called:: [phone] Was contact made?: Yes If yes, spoke with:: nate Time called:: 08:08 09/26/17 01:09 Consult to Case Management [CONS] Routine Services Needed at Discharge: Physical Therapy Occupational Therapy Home Health Services Notified:: case fitter Consult to Dietitian/Nutrition [CONS] Routine Physician Instructions: Reason For Exam: Reason for Consult: Nutrition Recommendations Reason for Consult: Diet education Occupational Therapy Evaluate and Treat [CONS] Routine Comment: Reason For Exam: Neuro deficits Physical Therapy Evaluation and Treat [CONS] Routine Comment: Reason For Exam: Neuro deficits Speech Therapy Evaluation and Treat [CONS] Routine Reason For Exam: swallow eval 09/26/17 05:27 Consult to Physician [CONS] Routine Consulting Provider: LEON NIELSEN Reason For Exam: chest pain, cocaine Place consult to:: cardiology Notified:: yes Phone number called:: [phone] Was contact made?: Yes If yes, spoke with:: bon Time called:: 08:31 Comment:: added to list 09/29/17 17:05 psychiatry consult [Consult to Mental Health] [CONS] Routine Reason For Exam: ? bipolar disorder Place consult to:: Mental Health Notified:: Annmarie COLLINS Phone number called:: [phone] Was contact made?: Yes If yes, spoke with:: [facility] health Time called:: 08:20 Primary care physician: BROOM MAKER Hospitalization Condition: Fair Hospital course: --I discussed with patient's mother Psychiatrist [place]. Patient has history of bipolar disorder not on any medications Mother reports that Patient is in denial of his bipolar disorder, was admitted to inpatient psych facility 2- 3 years ago in [place] Psych evaluation, supportive care --Neurologic symptoms at the time of admission/not a candidate for TPA Neuro workup so far is negative, not consistent with CVA CT head, possible left pontine ischemia, however MRI negative for acute abnormality Carotid Doppler, echocardiogram is within normal limits, Aspirin and statin Continue physical therapy and occupational therapy page therapy --Atypical Chest pain; cardiology following Patient had negative stress test at [facility] one week ago, obtain medical records --Polysubstance abuse; U tox; positive for cocaine, marijuana, benzodiazepines Counseling done patient strongly advised to quit recreational drug use --Right knee pain; knee x-ray negative for acute abnormalities, physical therapy --Alcohol intoxication; continue CIWA protocol Counseling done patient advised to quit alcohol intake --Obesity, BMI 35.1 Diet modification, exercise as tolerated and weight reduction when medically stable Disposition: DC-01 TO HOME OR SELFCARE Core Measure Documentation - Palliative Care Palliative Care/ Comfort Measures: Not Applicable - Core Measures Any of the following diagnoses?: none Exam - Constitutional Vitals: Temp Pulse Resp BP Pulse Ox 98.4 F 62 20 149/110 99 09/30/17 12:08 09/30/17 13:34 09/30/17 12:08 09/30/17 13:34 09/30/17 12:08 General appearance: Present: no acute distress, well-nourished - EENT Eyes: Present: PERRL, EOM intact - Neck Neck: Present: supple, normal ROM - Respiratory Respiratory effort: normal Respiratory: bilateral: diminished, negative: rales, rhonchi, wheezing - Cardiovascular Rhythm: regular Heart Sounds: Present: S1 & S2 - Extremities Extremities: no ischemia, No edema - Abdominal General gastrointestinal: Present: soft, non-tender, non-distended, normal bowel sounds - Integumentary Integumentary: Present: clear, warm - Musculoskeletal Musculoskeletal: strength equal bilaterally - Psychiatric Psychiatric: appropriate mood/affect, cooperative - Neurologic Neurologic: CNII-XII intact, moves all extremities Plan Activity: no restrictions Diet: low salt Special Instructions: smoking cessation, other (advised to quit alcohol, occasional drugs marijuana and cocaine) Additional Instructions: Advised to quit alcohol intake, quit Marijuana and cocaine use. Also advised smoking cessation. Follow-up behavioral health/ psychiatric within 1 week Follow up with: PRIMARY CAREMD [Primary Care Provider] - 3-5 Days MALLORY ROUSE MD [Staff Physician] - 7 Days Prescriptions: amLODIPine [Norvasc] 10 mg PO DAILY #30 tablet Candesartan Cilexetil [Atacand] 32 mg PO QDAY #30 tablet hydrALAZINE [Apresoline TAB] 50 mg PO Q8HR #30 tablet Indomethacin [Indocin] 25 mg PO Q6H PRN #20 capsule PRN Reason: Pain Losartan [Cozaar] 100 mg PO QDAY #30 tablet Nicotine [Habitrol] 21 mg TD QDAY #30 patch oxyCODONE /ACETAMINOPHEN [Percocet 5/325] 1 tab PO BID PRN #10 tablet PRN Reason: Pain
[2017-09-30 18:17] VITALS: BP 146/99
[2017-10-01] MEDS ORDERED: COZAAR PO SCH (10:00)
[2017-10-01] MEDS ORDERED: LASIX PO SCH (10:00)
[2017-10-01] MEDS ORDERED: PROTONIX PO SCH (10:00)
[2017-10-01] MEDS ORDERED: CANDESARTAN CILEXETIL 32 MG PO SCH (10:00)
[2017-10-01] MEDS ORDERED: NORVASC PO SCH (10:00)
== END 2017-09-30 18:38 | disposition home or self-care (01) | DRG 897 ==
LOC: ED 17:12 → 4A 09-26 00:16
PROVIDERS: ADMIT Internal Medicine; ATTEND Internal Medicine
DX: F10.129 Alcohol abuse with intoxication, unspecified (principal); I10 Essential (primary) hypertension; E66.9 Obesity, unspecified; E78.5 Hyperlipidemia, unspecified; M10.9 Gout, unspecified; F14.10 Cocaine abuse, uncomplicated; F12.10 Cannabis abuse, uncomplicated; Y90.9 Presence of alcohol in blood, level not specified; F17.200 Nicotine dependence, unspecified, uncomplicated; F31.9 Bipolar disorder, unspecified; R07.89 Other chest pain; Z88.0 Allergy status to penicillin; Z82.49 Family history of ischemic heart disease and other diseases of the circulatory system; Z68.36 Body mass index [BMI] 36.0-36.9, adult; Z82.3 Family history of stroke
CPT/HCPCS: 36415; 70450; 70496; 70498; 70551; 71010; 80048; 80061; 80307; 80320; 82962; 84484; 84550; 85025; 85610; 85670; 85730; 93005; 93010; 93306; 93880; 94640; 94760; 96374; 99406; G0480; J0360; J1170; J1650; J2060; J7030; Q9967

== ENCOUNTER 2019-01-03 03:36 | Observation (INO) | payer OTHER ==
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
[2019-01-03 05:07] LABS: Hematocrit 41.6 % (35.5-45.6); Hemoglobin 14.8 gm/dl (11.8-15.2); Mean Corpuscular HGB Conc 36 % (32-34); Mean Corpuscular Volume 92 fl (84-94); Red Blood Count 4.53 M/mm3 (3.65-5.03); Red Cell Distribution Width 14.9 % (13.2-15.2)
[2019-01-03 05:12] LABS: INR 0.91 (0.87-1.13)
[2019-01-03] MEDS ORDERED: SUBLIMAZE IV ONE (05:19)
[2019-01-03] MEDS ORDERED: ZOFRAN IV ONE (05:19)
[2019-01-03 05:21] LABS: Platelet Count 235 K/mm3 (140-440)
[2019-01-03] MEDS ORDERED: SUBLIMAZE ONE (05:23)
[2019-01-03] MEDS ORDERED: ZOFRAN ONE (05:23)
[2019-01-03 05:32] LABS: Partial Thromboplastin Time 28.1 Sec. (24.2-36.6)
[2019-01-03 05:39] LABS: Alanine Aminotransferase 19 units/L (7-56); Albumin 4.2 g/dL (3.9-5); BUN/Creatinine Ratio 16; Blood Urea Nitrogen 11 mg/dL (9-20); Hemolysis Index 14
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
[2019-01-03 06:12] LABS: Basophils % (Manual) 0 % (0.0-1.8); Platelet Estimate Consistent w Auto; Total Cells Counted 100
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
[2019-01-03] MEDS ORDERED: BABY ASPIRIN PO ONE (09:08)
[2019-01-03] MEDS ORDERED: ATIVAN IV PRN ×2 (09:49)
[2019-01-03] MEDS ORDERED: ULTRAM PO PRN (09:49)
[2019-01-03] MEDS ORDERED: SODIUM CHLORIDE FLUSH SYRINGE 10 ML IV PRN (09:49)
[2019-01-03] MEDS ORDERED: INDOCIN PO PRN (09:51)
[2019-01-03] MEDS ORDERED: ROBAXIN PO PRN (09:51)
[2019-01-03] MEDS ORDERED: LASIX PO SCH (10:00)
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
[2019-01-03] MEDS ORDERED: LASIX ONE (10:28)
[2019-01-03] MEDS: PROTONIX PO SCH (10:37)
[2019-01-03] MEDS: NORVASC PO SCH (10:37)
[2019-01-03] MEDS: COZAAR PO SCH (10:37)
[2019-01-03] MEDS: HABITROL TD SCH (10:54)
[2019-01-03] MEDS: CATAPRES PO SCH ×2 (10:54→22:25)
[2019-01-03] MEDS ORDERED: MORPHINE IV ONE (11:20)
[2019-01-03] MEDS ORDERED: MORPHINE ONE (11:22)
[2019-01-03] MEDS ORDERED: ATIVAN ONE (11:47)
[2019-01-03 11:55] LABS: Amphetamine Screen,Urine PRESUMPTIVE NEGATIVE; Benzodiazepines Screen,Urine PRESUMPTIVE NEGATIVE; Cannabinoid Screen,Urine PRESUMPTIVE NEGATIVE; Methadone Screen,Urine PRESUMPTIVE NEGATIVE; Opiate Screen,Urine PRESUMPTIVE NEGATIVE
[2019-01-03 12:18] LABS: Cocaine Screen,Urine PRESUMPTIVE POSITIVE
[2019-01-03 13:46] LABS: Basophils % (Auto) 0.9 % (0.0-1.8); Eosinophils # (Auto) 0.1 K/mm3 (0.0-0.4); Eosinophils % (Auto) 1.6 % (0.0-4.3); Hematocrit 41.1 % (35.5-45.6); Hemoglobin 14.4 gm/dl (11.8-15.2); Lymphocytes # (Auto) 1.1 K/mm3 (1.2-5.4); Lymphocytes % (Auto) 20.1 % (13.4-35.0); Mean Corpuscular HGB Conc 35 % (32-34); Mean Corpuscular Volume 91 fl (84-94); Monocytes # (Auto) 0.4 K/mm3 (0.0-0.8); Monocytes % (Auto) 8.1 % (0.0-7.3); Platelet Count 286 K/mm3 (140-440); Red Blood Count 4.51 M/mm3 (3.65-5.03)
[2019-01-03 14:04] LABS: Creatine Kinase MB 4.7 ng/mL (0.0-4.0)
[2019-01-03 14:05] LABS: BUN/Creatinine Ratio 11; Blood Urea Nitrogen 8 mg/dL (9-20); Calcium 8.9 mg/dL (8.4-10.2); Hemolysis Index 9
[2019-01-03 14:06] LABS: Chol/HDL Ratio 2.01 %
[2019-01-03] MEDS: APRESOLINE PO SCH ×2 (15:42→22:27)
[2019-01-03] MEDS: PERCOCET 5/325 PO PRN ×2 (15:51→22:24)
[2019-01-03] MEDS: MORPHINE IV PRN (18:23)
[2019-01-03 18:56] LABS: Creatine Kinase MB 4.3 ng/mL (0.0-4.0)
[2019-01-03] MEDS: NACL 0.9% 1000 ML 1,000 ML IV SCH (19:05)
--- NOTE | 2019-01-03 23:20 | Vascular Lab Report ---
FINAL REPORT EXAM: VL CAROTID DUPLEX BILAT HISTORY: CVA TECHNIQUE: Real-time color duplex sonography was performed of the bilateral cervical carotid arterie s and images are submitted for interpretation. PRIORS: CT angiogram of the neck from 09/25/2017 FINDINGS: Right: The common carotid artery appears normal with normal color flow and vascular waveforms. No mike que is visualized. The carotid bulb appears normal. There is moderate scrotal broadening throughout t he ICA. There is a normal spectral tracing in the visualized external carotid artery. Flow in the rig ht vertebral artery is antegrade. Maximum systolic velocity in the internal carotid artery is 69 cm/s . Internal carotid end-diastolic velocity is 21 cm/s. The IC to CC ratio is 0.86. Left: The common carotid artery appears normal with normal color flow and vascular waveforms. No plaq ue is visualized. The carotid bulb appears normal. There is moderate scrotal broadening throughout th e ICA. There is a normal spectral tracing in the visualized external carotid artery. Flow in the left vertebral artery is antegrade. Maximum systolic velocity in the internal carotid artery is 61 cm/s. Internal carotid end-diastolic velocity is 25 cm/s. The IC to CC ratio is 0.74. IMPRESSION: Mild bilateral ICA disease, 16-49 % stenosis
[2019-01-04] MEDS: NACL 0.9% 1000 ML 1,000 ML IV SCH (01:44)
[2019-01-04] MEDS: APRESOLINE PO SCH ×2 (05:54→14:45)
[2019-01-04] MEDS ORDERED: LASIX PO SCH (06:00)
[2019-01-04] MEDS: PERCOCET 5/325 PO PRN ×2 (06:27→14:44)
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
--- NOTE | 2019-01-04 09:24 | Magnetic Resonance Report ---
MRI OF THE BRAIN WITHOUT CONTRAST: HISTORY: CVA PROCEDURE: Multiplanar, multisequence MR imaging of the brain without IV contrast was performed. FINDINGS: The brain parenchyma signal intensity and its gardner white interface are within normal limits on all sequences. No evidence for acute ischemia, hemorrhage or mass. No chronic infarct or extra-axial fluid collection. The midline structures are central. The basal cisterns are patent. Normal ventricular size. The orbital cavities and sella turcica demonstrate no abnormality. The visualized paranasal sinuses and mastoid air cells are well aerated. IMPRESSION: Unremarkable non-enhanced MRI of the brain. No change since MR brain dated 09/27/17.
[2019-01-04] MEDS ORDERED: ASPIRIN PO SCH (10:00)
[2019-01-04] MEDS: HABITROL TD SCH (12:53)
[2019-01-04] MEDS: MORPHINE IV PRN ×2 (12:54→18:32)
[2019-01-04] MEDS ORDERED: ZOFRAN IV PRN (13:00)
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
[2019-01-04] MEDS: COZAAR PO SCH (14:45)
[2019-01-04] MEDS: NORVASC PO SCH (14:45)
[2019-01-04] MEDS: CATAPRES PO SCH (14:45)
[2019-01-04] MEDS: PROTONIX PO SCH (14:45)
[2019-01-04 15:54] VITALS: BP 148/100
--- NOTE | 2019-01-04 16:30 | Event Note ---
Date: 01/04/19 Called [facility] , discussed with Dr. Kwok. No bed available for transfer
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
[2019-01-04] MEDS ORDERED: D5NS 1,000 ML IV SCH (17:00)
== END 2019-01-04 20:19 | disposition other institution (70) ==
LOC: ED 03:36 → 3A 09:08 → 4A 17:08
PROVIDERS: ADMIT Internal Medicine; ATTEND Internal Medicine
DX: S20.219A Contusion of unspecified front wall of thorax, initial encounter (principal); S06.0X9A Concussion with loss of consciousness of unspecified duration, initial encounter; S93.401A Sprain of unspecified ligament of right ankle, initial encounter; F10.129 Alcohol abuse with intoxication, unspecified; F14.10 Cocaine abuse, uncomplicated; I10 Essential (primary) hypertension; E66.9 Obesity, unspecified; I16.0 Hypertensive urgency; F17.210 Nicotine dependence, cigarettes, uncomplicated; V49.9XXA Car occupant (driver) (passenger) injured in unspecified traffic accident, initial encounter; Y93.89 Activity, other specified; Y92.89 Other specified places as the place of occurrence of the external cause; Y99.8 Other external cause status; Z88.0 Allergy status to penicillin; Z79.899 Other long term (current) drug therapy
CPT/HCPCS: 36415; 70450; 70551; 71260; 72125; 73030; 74177; 80048; 80053; 80061; 80307; 82550; 82553; 84484; 85007; 85025; 85610; 85730; 86850; 86900; 86901; 93005; 93010; 93306; 93880; 96374; 96375; 96376; 99284; 99406; A9270; G0378; G0480; J2060; J2270; J2405; J3010; J7030; J7042; Q9967; 80320

== ENCOUNTER 2019-04-22 12:32 | Emergency (ER) | payer SELFPAY ==
--- NOTE | 2019-04-22 14:06 | Consultation ---
History of Present Illness - Reason for Consult Consult date: 04/22/19 Reason for consult: Mental Healrh Evaluation Requesting physician: ISABELLA CALLAWAY - Chief Complaint Chief complaint: "The patient maybe intoxicated" - History of Present Psychiatric Illness 48 y.o. AA male presented to the ER for ETOH per EMS. Today the patient was unable to be assessed due to possible alcohol intoxication. Per the record, the patient drink (etoh) often. Also, he endorsed SI's. Will attempt to reassess the patient in 24 hours. Medications and Allergies Allergies Allergy/AdvReac Type Severity Reaction Status Date / Time Penicillins Allergy Unknown Verified 04/21/17 15:46 Home Medications Medication Instructions Recorded Confirmed Last Taken Type amLODIPine [Norvasc] 10 mg PO DAILY #30 tablet 09/30/17 04/23/19 01/02/19 Rx Aspirin [Aspirin EC] 81 mg PO DAILY 01/03/19 04/23/19 01/02/19 History Potassium Chloride [Klor-Con] 20 meq PO DAILY 01/03/19 04/23/19 01/02/19 History cloNIDine [Catapres] 0.2 mg PO TID 01/03/19 04/23/19 01/02/19 History AtorvaSTATin [Lipitor] 20 mg PO QHS tablet 01/04/19 04/23/19 Unknown Rx D5w/0.9% NaCl [D5ns] 1,000 ml IV DIRECT #1 bag 01/04/19 04/23/19 Unknown Rx Indomethacin [Indocin] 25 mg PO Q6H PRN capsule 01/04/19 04/23/19 Unknown Rx Losartan [Cozaar] 100 mg PO QDAY tablet 01/04/19 04/23/19 Unknown Rx Nicotine [Habitrol] 21 mg TD QDAY patch 01/04/19 04/23/19 Unknown Rx hydrALAZINE [Apresoline TAB] 50 mg PO Q8HR tablet 01/04/19 04/23/19 Unknown Rx methOCARBAMOL [Robaxin TAB] 500 mg PO Q6H PRN tablet 01/04/19 04/23/19 1 Day Ago Rx ~04/22/19 traMADol [Ultram 50 MG tab] 50 mg PO Q6H PRN tablet 01/04/19 04/23/19 Unknown Rx Past psychiatric history - Past Medical History Past Medical History: other (Unable to obtain ) Past Surgical History: Other (Unable to obtain ) - past Psychiatric treatment and history psychiatric treatment history: Unable to obtain a psy hx and fam psy hx. - Social History Social history: other (Unbale to obtain) Mental Status Exam - Vital signs Last Vital Signs Temp 98.5 F 04/22/19 13:00 Pulse 97 H 04/22/19 13:00 Resp 18 04/22/19 13:00 BP 135/90 04/22/19 13:00 Pulse Ox 100 04/22/19 13:00 - Exam Narrative exam: Unable to obtain to complete the MSE because of the patient's condition. Results Result Diagrams: 04/22/19 15:20 04/22/19 15:20 All other labs normal. Assessment and Plan Assessment and plan: Impression: Today the patient was unable to be assessed due to possible alcohol intoxication. Labs are pending. Per the patient's assigned nurse, he endorsed Si's. Recommendation/Plan: 2013 will be initiated by ER Physician. Will reassess in 24 hours. Dispo: Once the patient is assessment by psy, proper dispo will be determined. Staffed with Dr Reinaldo metcalf.
[2019-04-22 15:35] LABS: Basophils # (Auto) 0.1 K/mm3 (0.0-0.1); Basophils % (Auto) 1.2 % (0.0-1.8); Eosinophils % (Auto) 0.6 % (0.0-4.3); Hematocrit 45.1 % (35.5-45.6); Hemoglobin 15.6 gm/dl (11.8-15.2); Lymphocytes # (Auto) 2.1 K/mm3 (1.2-5.4); Lymphocytes % (Auto) 30.8 % (13.4-35.0); Mean Corpuscular HGB Conc 35 % (32-34); Mean Corpuscular Volume 95 fl (84-94); Monocytes # (Auto) 0.9 K/mm3 (0.0-0.8); Monocytes % (Auto) 13.2 % (0.0-7.3); Platelet Count 262 K/mm3 (140-440); Red Blood Count 4.73 M/mm3 (3.65-5.03); Red Cell Distribution Width 15.4 % (13.2-15.2)
[2019-04-22 16:06] LABS: Alanine Aminotransferase 19 units/L (7-56); Albumin 3.9 g/dL (3.9-5); BUN/Creatinine Ratio 13; Blood Urea Nitrogen 13 mg/dL (9-20); Calcium 8.7 mg/dL (8.4-10.2); Hemolysis Index 43
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
[2019-04-22] MEDS ORDERED: TYLENOL PO ONE (19:57)
[2019-04-23 03:35] LABS: Bilirubin,Urine NEG (Negative); Blood,Urine NEG (Negative); Color,Urine Yellow (Yellow); Hyaline Casts,Urine 4 /LPF; Mucus,Urine FEW /HPF; Protein,Urine <15 mg/dL mg/dL (Negative); Urobilinogen,Urine < 2.0 mg/dL (<2.0)
[2019-04-23 03:41] LABS: Amphetamine Screen,Urine PRESUMPTIVE NEGATIVE; Benzodiazepines Screen,Urine PRESUMPTIVE NEGATIVE; Cannabinoid Screen,Urine PRESUMPTIVE NEGATIVE; Methadone Screen,Urine PRESUMPTIVE NEGATIVE; Opiate Screen,Urine PRESUMPTIVE NEGATIVE
[2019-04-23 03:52] LABS: Cocaine Screen,Urine PRESUMPTIVE POSITIVE
[2019-04-23] MEDS ORDERED: ATIVAN PO ONE (11:48)
[2019-04-23] MEDS: NORVASC PO SCH (13:21)
[2019-04-23] MEDS ORDERED: IBUPROFEN PO ONE (13:36)
[2019-04-23] MEDS: CATAPRES PO SCH ×2 (14:50→20:13)
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
[2019-04-23] MEDS: DESYREL PO SCH (22:05)
[2019-04-24] MEDS ORDERED: IBUPROFEN ONE ×2 (05:32→15:28)
[2019-04-24] MEDS ORDERED: IBUPROFEN PO ONE (06:30)
[2019-04-24] MEDS: CATAPRES PO SCH ×3 (11:22→22:09)
[2019-04-24] MEDS ORDERED: IBUPROFEN PO PRN (15:30)
[2019-04-24] MEDS: NORVASC PO SCH (15:55)
[2019-04-24] MEDS ORDERED: TYLENOL PO ONE (16:08)
[2019-04-24] MEDS: DESYREL PO SCH (22:09)
[2019-04-25] MEDS: CATAPRES PO SCH ×2 (09:26→11:30)
[2019-04-25] MEDS: NORVASC PO SCH (11:23)
[2019-04-25 13:47] VITALS: BP 113/83
== END 2019-04-25 15:39 ==
LOC: EEVIPCON 12:32 → ED 12:32
DX: F10.129 Alcohol abuse with intoxication, unspecified (principal); I10 Essential (primary) hypertension; E78.00 Pure hypercholesterolemia, unspecified; M10.9 Gout, unspecified; I48.91 Unspecified atrial fibrillation; Z88.0 Allergy status to penicillin
CPT/HCPCS: 36415; 80053; 80307; 81001; 85025; 93005; 93010; 99285; G0480; 80320